=== PATIENT | female | born 2000 | race African-American/Black ===

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

== ENCOUNTER 2018-03-28 15:18 | Emergency (ER) | payer OTHER ==
[2018-03-28 15:29] VITALS: BP 106/66; PULSE 92; TEMP 97.9; BMI 24.2
--- NOTE | 2018-03-28 15:30 | PDOC ---
Rapid Medical Evaluation Chief Complaint: Sore Throat Time Seen by Provider: 03/28/18 15:24 Medical Evaluation: Allergies Allergy/AdvReac Type Severity Reaction Status Date / Time No Known Allergies Allergy Verified 03/28/18 15:24 12 15:25 I have performed a brief in-person evaluation of this patient. The patient presents with a chief complaint of:sorethroat, dry, headache no fever. Pertinent physical exam findings: temp 97.9 (ibuprofen at 12noon) I have ordered the following: rapid strep The patient will proceed to the ED for further evaluation. 03/28/18 15:25 03/28/18 15:28 Discharge Disposition - Diagnosis Pharyngitis Qualifiers: Pharyngitis/tonsillitis etiology: unspecified etiology Qualified Code(s): J02.9 - Acute pharyngitis, unspecified - Referrals Referrals: Tal King MD [Primary Care Provider] - - Patient Instructions - Post Discharge Activity
[2018-03-28] MEDS ORDERED: DEXAMETHASONE LIQUID 0.5 MG/5 ML 240 ML BULK BOTTLE PO ONE (16:14)
--- NOTE | 2018-03-28 16:14 | PDOC ---
History of Present Illness - General Chief Complaint: Sore Throat Stated Complaint: SORE THROAT Time Seen by Provider: 03/28/18 15:24 History Source: Patient Exam Limitations: No Limitations - History of Present Illness Initial Comments: 03/28/18 17:30 Patient is a 17-year-old who presents emergency department for 2 days of sore throat, headache and dry throat. She states she took Motrin at approximately 12 PM for her symptoms. Denies nausea, vomiting, cough, earache and rhinorrhea. Past History - Travel Traveled outside of the country in the last 30 days: No Close contact w/someone who was outside of country & ill: No - Past Medical History Allergies/Adverse Reactions: Allergies Allergy/AdvReac Type Severity Reaction Status Date / Time No Known Allergies Allergy Verified 03/28/18 15:24 Home Medications: Ambulatory Orders Amoxicillin - [Amoxicillin 500mg Capsule -] 500 mg PO BID #14 capsule 03/28/18 Ibuprofen 600 mg PO Q6H #30 tablet 03/28/18 Asthma: Yes Cancer: No Cardiac Disorders: No CVA: No COPD: No CHF: No DVT: No Dementia: No GI Disorders: No Disorders: No HTN: No Hypercholesterolemia: No Liver Disease: No Seizures: No Thyroid Disease: Yes (hyperactive) - Surgical History Abdominal Surgery: No Appendectomy: No Cardiac Surgery: No Cholecystectomy: No Lung Surgery: No Neurologic Surgery: No Orthopedic Surgery: No - Reproductive History (#): 2 Para: 0 - Immunization History Immunization Up to Date: Yes - Suicide/Smoking/Psychosocial Hx Smoking History: Never smoked Have you smoked in the past 12 months: No Hx Alcohol Use: No Drug/Substance Use Hx: No Substance Use Type: None Hx Substance Use Treatment: No Review of Systems - Review of Systems Able to Perform ROS?: Yes Comments:: 03/28/18 16:04 CONSTITUTIONAL: Absent: fever, chills, diaphoresis, generalized weakness, malaise, loss of appetite HEENT: Present: sore throat Absent: rhinorrhea, nasal congestion, throat swelling, difficulty swallowing, mouth swelling, ear pain, eye pain, visual Changes CARDIOVASCULAR: Absent: chest pain, loss of consciousness, palpitations, irregular heart rate, peripheral edema RESPIRATORY: Absent: cough, shortness of breath, dyspnea with exertion, orthopnea, wheezing, stridor, hemoptysis GASTROINTESTINAL: Absent: abdominal pain, abdominal distension, nausea, vomiting, diarrhea, constipation, melena, hematochezia GENITOURINARY: Absent: dysuria, frequency, urgency, hesitancy, hematuria, flank pain, genital pain MUSCULOSKELETAL: Absent: myalgia, arthralgia, joint swelling SKIN: Absent: rash, itching, pallor HEMATOLOGIC/IMMUNOLOGIC: Absent: easy bleeding, easy bruising, lymphadenopathy, frequent infections ENDOCRINE: Absent: unexplained weight gain, unexplained weight loss, heat intolerance, cold intolerance NEUROLOGIC: Present: headache Absent: focal weakness or paresthesias, dizziness, unsteady gait, seizure, mental status changes, bladder or bowel incontinence PSYCHIATRIC: Absent: anxiety, depression, suicidal or homicidal ideation, hallucinations. Is the patient limited Palestinian proficient: No *Physical Exam - Vital Signs Last Vital Signs Temp Pulse Resp BP Pulse Ox 97.9 F 92 H 18 106/66 100 03/28/18 15:25 03/28/18 15:25 03/28/18 15:25 03/28/18 15:25 03/28/18 15:25 - Physical Exam Comments: 03/28/18 16:06 GENERAL: Well developed, well nourished. Awake and alert. No acute distress. HEENT: Normocephalic, atraumatic. PERRLA, EOMI. No conjunctival pallor. Sclera are non- icteric. Moist mucous membranes. Oropharynx is erythematous with exudate on the tonsils b/l. No tonsilar edema. Uvula is midline NECK: Supple. Full ROM. No JVD. Carotid pulses 2+ and symmetric, without bruits. No thyromegaly. No lymphadenopathy. CARDIOVASCULAR: Regular rate and rhythm. No murmurs, rubs, or gallops. Distal pulses are 2+ and symmetric. PULMONARY: No evidence of respiratory distress. Lungs clear to auscultation bilaterally. No wheezing, rales or rhonchi. ABDOMINAL: Soft. Non-tender. Non-distended. No rebound or guarding. No organomegaly. Normoactive bowel sounds. MUSCULOSKELETAL Normal range of motion at all joints. No bony deformities or tenderness. No CVA tenderness. EXTREMITIES: No cyanosis. No clubbing. No edema. No calf tenderness. SKIN: Warm and dry. Normal capillary refill. No rashes. No jaundice. NEUROLOGICAL: Alert, awake, appropriate. Cranial nerves 2-12 intact. No deficits to light touch and temperature in face, upper extremities and lower extremities. No motor deficits in the in face, upper extremities and lower extremities. Normoreflexic in the upper and lower extremities. Normal speech. Toes are down- going bilaterally. Gait is normal without ataxia. PSYCHIATRIC: Cooperative. Good eye contact. Appropriate mood and affect. Moderate Sedation - Procedure Monitoring Vital Signs: Procedure Monitoring Vital Signs Temperature 97.9 F 03/28/18 15:25 Pulse Rate 92 H 03/28/18 15:25 Respiratory Rate 18 03/28/18 15:25 Blood Pressure 106/66 03/28/18 15:25 O2 Sat by Pulse Oximetry (%) 100 03/28/18 15:25 Medical Decision Making - Medical Decision Making 03/28/18 17:31 Patient is a 17-year-old female who presents to emergency department today's of sore throat. Rapid strep came from E is positive at this time. 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 Prednisone given for pain. Amoxicillin sent to the pharmacy with ibuprofen. Vital signs stable, patient is afebrile. Discharge home I discussed the physical exam findings, ancillary test results and final diagnoses with the patient. I answered all of the patient's questions. The patient was satisfied with the care received and felt comfortable with the discharge plan and treatment plan. The Patient agrees to follow up with the primary care physician/specialist within 24-72 hours. Return precautions were given. *DC/Admit/Observation/Transfer Diagnosis at time of Disposition: Strep pharyngitis - Discharge Dispostion Disposition: HOME Condition at time of disposition: Stable Decision to Admit order: No - Prescriptions Prescriptions: Amoxicillin - [Amoxicillin 500mg Capsule -] 500 mg PO BID #14 capsule Ibuprofen 600 mg PO Q6H #30 tablet - Referrals Referrals: Tal King MD [Primary Care Provider] - - Patient Instructions Printed Discharge Instructions: DI for Strep Throat Additional Instructions: You have strep throat. This is a bacterial infection. Please take the amoxicillin 500 mg twice a day for one week. Please finish the prescription even if you feel better. You may take Motrin 600 mg every 6 hours as needed for pain or fever. Warm water gargles and cough drops and just may also help her symptoms. Please throw way your toothbrush 3 days into treatment to prevent reinfection. Please follow up with your primary care doctor next week. Return to emergency department if you have worsening pain, difficulty swallowing , changes in your voice, lightheadedness, dizziness, or any changes in your symptoms. - Post Discharge Activity Forms/Work/School Notes: Back to Work
[2018-03-28] MEDS ORDERED: DEXAMETHASONE SOD PHOSPHATE 10 MG/1 ML VIAL ONE (16:17)
== END 2018-03-28 16:20 | disposition home or self-care (01) ==
LOC: JER 15:18
DX: J02.0 Streptococcal pharyngitis (principal); B95.0 Streptococcus, group A, as the cause of diseases classified elsewhere; E05.90 Thyrotoxicosis, unspecified without thyrotoxic crisis or storm; J45.909 Unspecified asthma, uncomplicated
CPT/HCPCS: 87880; 99281-25

== ENCOUNTER 2018-10-03 17:18 | Emergency (ER) | payer OTHER | END 2018-10-03 19:47 | disposition home or self-care (01) | LOC: JERFT 17:18 ==

== ENCOUNTER 2018-11-28 09:01 | Emergency (ER) | payer OTHER ==
[2018-11-28 09:17] VITALS: BP 106/71; PULSE 107; TEMP 98.1; BMI 21.9
--- NOTE | 2018-11-28 10:13 | PDOC ---
History of Present Illness - General Chief Complaint: Vaginal Bleeding Stated Complaint: VAGINAL BLEEDING Time Seen by Provider: 11/28/18 09:29 History Source: Patient Exam Limitations: No Limitations - History of Present Illness Travel History: No Initial Comments: 11/28/18 09:58 18-year-old 11 weeks female presents to ED with complaints of vaginal bleeding upon awakening this morning along with lower abdominal cramping since last night. LMP 09/08/18. Patient states bleeding has subsided only noted with wiping which she describes as bright red without clots. Patient states has not had an ultrasound for this Timing/Duration: reports: changing over time Quality: reports: mild, cramping Abdominal Pain Onset Location: reports: suprapubic Activities at Onset: reports: none Aggravating Factors: improves with: None Alleviating Factors: improves with: None Past History - Travel Traveled outside of the country in the last 30 days: No Close contact w/someone who was outside of country & ill: No - Past Medical History Allergies/Adverse Reactions: Allergies Allergy/AdvReac Type Severity Reaction Status Date / Time No Known Allergies Allergy Verified 10/03/18 17:39 Home Medications: Ambulatory Orders NK [No Known Home Medication] 11/28/18 Asthma: Yes Cancer: No Cardiac Disorders: No CVA: No COPD: No CHF: No DVT: No Dementia: No GI Disorders: No Disorders: No HTN: No Hypercholesterolemia: No Liver Disease: No Seizures: No Thyroid Disease: Yes (hyperactive) - Surgical History Abdominal Surgery: No Appendectomy: No Cardiac Surgery: No Cholecystectomy: No Lung Surgery: No Neurologic Surgery: No Orthopedic Surgery: No - Reproductive History (#): 2 Para: 0 - Immunization History Immunization Up to Date: Yes - Suicide/Smoking/Psychosocial Hx Smoking History: Never smoked Have you smoked in the past 12 months: No Hx Alcohol Use: No Drug/Substance Use Hx: No Substance Use Type: None Hx Substance Use Treatment: No Patient Lives Alone: No Lives with/in: parents Review of Systems - Review of Systems Able to Perform ROS?: Yes Constitutional: No: Symptoms Reported HEENTM: No: Symptoms Reported Respiratory: No: Symptoms reported Cardiac (ROS): No: Symptoms Reported ABD/GI: Yes: Abdominal cramping : No: Symptoms Reported Musculoskeletal: No: Symptoms Reported Integumentary: No: Symptoms Reported Neurological: No: Symptoms reported Endocrine: No: Symptoms Reported Hematologic/Lymphatic: No: Symptoms Reported *Physical Exam - Vital Signs Last Vital Signs Temp Pulse Resp BP Pulse Ox 98.1 F 107 H 18 106/71 100 11/28/18 09:14 11/28/18 09:14 11/28/18 09:14 11/28/18 09:14 11/28/18 09:14 - Physical Exam General Appearance: Yes: Nourished, Appropriately Dressed. No: Apparent Distress HEENT: negative: Pale Conjunctivae Neck: positive: Normal Thyroid, Supple Respiratory/Chest: positive: Lungs Clear, Normal Breath Sounds. negative: Respiratory Distress, Accessory Muscle Use Cardiovascular: positive: Regular Rhythm, Tachycardia. negative: Murmur Female Pelvic Exam: positive: normal external exam, cervical os closed, vaginal bleeding (scant light red). negative: adnexal tenderness Gastrointestinal/Abdominal: positive: Normal Bowel Sounds, Soft, Tenderness ( midsuprapubic). negative: Distended Musculoskeletal: negative: CVA Tenderness Integumentary: positive: Normal Color, Warm, Moist Neurologic: positive: Motor Strength 5/5 (ambulatory) ED Treatment Course - LABORATORY CBC & Chemistry Diagram: 11/28/18 10:00 11/28/18 10:00 - RADIOLOGY Radiology Studies Ordered: Category Date Time Status <14WKS US [US] Stat Ultrasound 11/28/18 09:31 Ordered Medical Decision Making - Medical Decision Making 11/28/18 10:06 CC: abd pain, vag bleeding since this am, 11 weeks Exam: mid suprapubic tenderness with scant light red blleding noted in vault Plan: labs, urine and ultrasound 11/28/18 13:01 Laboratory Tests 11/28/18 11/28/18 11/28/18 10:00 10:00 10:00 WBC 7.5 Hgb 13.3 Hct 38.9 D Absolute Neuts (auto) 3.8 Monocytes % 9.0 D Eosinophils % 15.9 H D Sodium 138 Potassium 4.2 Chloride 104 Carbon Dioxide 28 Anion Gap 6 L BUN 9.7 Creatinine 0.8 Random Glucose 89 Calcium 10.2 H Total Bilirubin 0.6 AST 8 L ALT 17 Total Protein 8.0 Albumin 4.3 Beta HCG, Quant > 1000.0 Urine Ketones 1+ H Urine Blood 3+ H Urine Nitrite Negative Urine Bilirubin 1+ H Ur Leukocyte Esterase 1+ H Urine WBC (Auto) 16 Urine RBC (Auto) 16 Urine Casts (Auto) 37 11/28/18 13:03 Irregular intrauterine fluid collection consistent with a nonviable gestational sac. Clinical and laboratory correlation and follow-up sonogram is recommended. Patient has an appointment with Kaila Beth on or around 12/0511/28/18 13:04 U Culture and follow shows staph epidermidis sensitive to Macrobid. Patient will be prescribed the same *DC/Admit/Observation/Transfer Diagnosis at time of Disposition: Threatened , UTI (urinary tract infection) - Discharge Dispostion Disposition: HOME Condition at time of disposition: Good - Referrals Referrals: Tal King MD [Primary Care Provider] - Mag Beth CNM [Certified Nurse Senior Controller] - - Patient Instructions Printed Discharge Instructions: DI for Urinary Tract Infection (UTI), DI for Threatened Additional Instructions: I Recommend to follow-up with NIGHT CLERK AUDITOR as scheduled next week. Please take antibiotics as prescribed for urinary tract infection. If you develop any bleeding or mild abdominal cramping you may take Tylenol but if you develop severe abdominal cramping or heavy vaginal bleeding please return to the ED - Post Discharge Activity Forms/Work/School Notes: Back to Work
[2018-11-28 10:15] LABS: BASO % 1.4 % (0-2.0); EOS % 15.9 % (0-4.5); HEMATOCRIT 38.9 % (32.4-45.2); HEMOGLOBIN 13.3 GM/dL (10.7-15.3); LYMPH % 22.9 % (8-40); MCHC 34.2 g/dl (32.0-36.0); MEAN CELL VOLUME 99.5 fl (80-96); MEAN PLT VOLUME 7.9 fl (7.5-11.1); NEUT % 50.8 % (42.8-82.8); PLATELET COUNT 352 K/MM3 (134-434); RBC 3.91 M/mm3 (3.60-5.2); RDW 12.8 % (11.6-15.6); WHITE BLOOD COUNT 7.5 K/mm3 (4.0-10.0)
[2018-11-28 10:26] LABS: EPI CELLS 25.5 /HPF (0-5/HPF); HYALINE CASTS 37 /lpf (0-8); PH,URINE 6.5 (5.0-8.0); URINE APPEARANCE CLOUDY; URINE BACTERIA 203.6 /hpf (NEGATIVE); URINE BILIRUBIN 1+ (NEGATIVE); URINE COLOR DK YELLOW; URINE GLUCOSE (UA) NEGATIVE (NEGATIVE); URINE KETONE 1+ (NEGATIVE); URINE LEUK ESTERASE 1+ (NEGATIVE); URINE NITRITE NEGATIVE (NEGATIVE); URINE PROTEIN 1+ (NEGATIVE); URINE RBC 16 /hpf (0-4); URINE WBC 16 /hpf (0-5)
[2018-11-28 11:05] LABS: ALBUMIN 4.3 g/dl (3.4-5.0); ALK PHOS 70 U/L (45-117); ANION GAP 6 MMOL/L (8-16); BILIRUBIN,TOTAL 0.6 mg/dL (0.2-1); BLOOD UREA NITROGEN 9.7 mg/dL (7-18); CALCIUM 10.2 mg/dL (8.5-10.1); CHLORIDE 104 mmol/L (98-107); CO2 28 mmol/L (21-32); CREATININE 0.8 mg/dL (0.55-1.3); GLUCOSE,RANDOM 89 mg/dL (74-106); POTASSIUM 4.2 mmol/L (3.5-5.1); SGOT/AST 8 U/L (15-37); SGPT/ALT 17 U/L (13-61); SODIUM 138 mmol/L (136-145)
== END 2018-11-28 14:19 | disposition home or self-care (01) ==
LOC: JER 09:01
DX: O26.891 Other specified pregnancy related conditions, first trimester (principal); O20.0 Threatened abortion; O23.41 Unspecified infection of urinary tract in pregnancy, first trimester; Z3A.11 11 weeks gestation of pregnancy
CPT/HCPCS: 36415; 76801-TC; 80053; 81003; 84702; 85025; 86850; 86900; 86901; 87077; 87086; 99281-25

== ENCOUNTER 2019-01-11 15:54 | Emergency (ER) | payer OTHER ==
[2019-01-11 16:36] VITALS: BP 119/63; PULSE 91; TEMP 98.5; BMI 20.9
--- NOTE | 2019-01-11 16:39 | PDOC ---
Rapid Medical Evaluation Chief Complaint: Asthma Time Seen by Provider: 01/11/19 16:32 Medical Evaluation: Allergies Allergy/AdvReac Type Severity Reaction Status Date / Time No Known Allergies Allergy Verified 10/03/18 17:39 01/11/19 16:34 Pt presents with chest tightness and wheezing for two days. She is currently taking prednisone and breathing treatments at home. She states that despite the medication she is still having shortness of breath. She has been hospitalized and intubated for her asthma in the past Exam: lungs sound tight without obvious wheezing. Orders: bar Pt to proceed to the ER for further evaluation Discharge Disposition - Diagnosis Asthma Qualifiers: Asthma severity: mild Asthma persistence: intermittent Asthma complication type : with acute exacerbation Qualified Code(s): J45.21 - Mild intermittent asthma with (acute) exacerbation - Referrals Referrals: Tal King MD [Primary Care Provider] - - Patient Instructions - Post Discharge Activity
[2019-01-11] MEDS ORDERED: ALBUTEROL SO4 2.5/IPRATROPIUM 0.5 INH SOL 3 ML VIAL.NEB. NEB SCH (16:45)
--- NOTE | 2019-01-11 16:59 | PDOC ---
History of Present Illness - General Chief Complaint: Asthma Stated Complaint: ASTHMA Time Seen by Provider: 01/11/19 16:32 History Source: Patient Exam Limitations: No Limitations - History of Present Illness Initial Comments: 01/11/19 17:58 Chief complaint: Asthma Patient 18-year-old female, with multiple episodes of asthma, all her life, previously intubated, last time last year and that was her last attack. Patient states she's been getting shortness of breath since yesterday. She is on symbacort and singulair. no fever and otherwise feels well GENERAL/CONSTITUTIONAL: No fever, weakness. dizziness HEAD, EYES, EARS, NOSE AND THROAT: No change in vision. No ear pain or discharge. No sore throat. CARDIOVASCULAR: No chest pain RESPIRATORY: +shortness of breath or cough GASTROINTESTINAL: No pain, nausea, vomiting, diarrhea or constipation GENITOURINARY: No dysuria MUSCULOSKELETAL: No neck or back pain SKIN: No rash NEUROLOGIC: No headache, vertigo, loss of consciousness, or loss of sensation. GENERAL: The patient is awake, alert, and fully oriented, in no acute distress. HEAD: Normal with no signs of trauma. EYES: Pupils equal, round and reactive to light, sclera anicteric, conjunctiva clear. ENT: pharynx: no erythema, no exudate, uvula midline NECK: supple CHEST: minimal wheezing, no signs of distress, nontender, rr ABD: soft, nontender BACK: no tenderness or signs of injury EXTREMITIES: Normal range of motion, no edema. NEUROLOGICAL: Normal speech, normal gait. SKIN: Warm, Dry Past History - Past Medical History Allergies/Adverse Reactions: Allergies Allergy/AdvReac Type Severity Reaction Status Date / Time No Known Allergies Allergy Verified 10/03/18 17:39 Home Medications: Ambulatory Orders Nitrofurantoin Monohyd/M-Cryst [Macrobid -] 100 mg PO BID #14 capsule 11/28/18 Albuterol Sulfate Inhaler - [Ventolin Hfa Inhaler -] 2 inh PO Q4H #1 inh Prednisone [Deltasone] 40 mg PO DAILY #8 tablet 01/11/19 Asthma: Yes Cancer: No Cardiac Disorders: No CVA: No COPD: No CHF: No DVT: No Dementia: No GI Disorders: No Disorders: No HTN: No Hypercholesterolemia: No Liver Disease: No Seizures: No Thyroid Disease: Yes (hyperactive) - Surgical History Abdominal Surgery: No Appendectomy: No Cardiac Surgery: No Cholecystectomy: No Lung Surgery: No Neurologic Surgery: No Orthopedic Surgery: No - Reproductive History (#): 2 Para: 0 - Immunization History Immunization Up to Date: Yes - Suicide/Smoking/Psychosocial Hx Smoking History: Never smoked Have you smoked in the past 12 months: No Information on smoking cessation initiated: No Hx Alcohol Use: No Drug/Substance Use Hx: No Substance Use Type: None Hx Substance Use Treatment: No *Physical Exam - Vital Signs Last Vital Signs Temp Pulse Resp BP Pulse Ox 98.5 F 91 H 17 119/63 97 01/11/19 16:33 01/11/19 16:33 01/11/19 16:33 01/11/19 16:33 01/11/19 16:33 Medical Decision Making - Medical Decision Making 01/11/19 18:03 18 yo with long hx of asthma, previous intubation with tightness for one day. no signs of distress, full sentences with scant wheezing. last episode 2017 asthma action plan initiated. pt given duoneb and prednisone respiratory therapist completed asthma action plan. pt feels better, does not want additional nebulizer treatments 01/11/19 18:12 Discussed issues, findings, results, applicable medications and treatments and follow-up. All these were understood and all questions were answered *DC/Admit/Observation/Transfer Diagnosis at time of Disposition: Asthma Qualifiers: Asthma severity: mild Asthma persistence: intermittent Asthma complication type : with acute exacerbation Qualified Code(s): J45.21 - Mild intermittent asthma with (acute) exacerbation - Discharge Dispostion Disposition: HOME Condition at time of disposition: Stable - Prescriptions Prescriptions: Albuterol Sulfate Inhaler - [Ventolin Hfa Inhaler -] 2 inh PO Q4H #1 inh Prednisone [Deltasone] 40 mg PO DAILY #8 tablet - Referrals Referrals: Tal King MD [Primary Care Provider] - - Patient Instructions Printed Discharge Instructions: Asthma -- Adult Additional Instructions: use ventolin inhaler as instructed as needed starting tomorrow, take prednisone 40 mg once daily for 4 days return if worse follow up with your doctor by tuesday follow instructions given to you by respiratory therapist. - Post Discharge Activity Forms/Work/School Notes: Back to Work
[2019-01-11] MEDS ORDERED: ALBUTEROL SO4 2.5/IPRATROPIUM 0.5 INH SOL 3 ML VIAL.NEB. NEB ONE (17:43)
[2019-01-11] MEDS ORDERED: predniSONE 20 MG TABLET (UD) PO ONE (17:44)
== END 2019-01-11 18:48 | disposition home or self-care (01) ==
LOC: JERFT 15:54 → SUPCPDRO 15:54 → JERFT 18:48
PROC: 3E0F7GC Introduction of Other Therapeutic Substance into Respiratory Tract, Via Natural or Artificial Opening (ICD-10-PCS; principal; 2019-01-11)
DX: J45.21 Mild intermittent asthma with (acute) exacerbation (principal)
CPT/HCPCS: 94664; 99281-25

== ENCOUNTER 2019-05-11 19:31 | Emergency (ER) | payer OTHER ==
[2019-05-11] MEDS ORDERED: predniSONE 20 MG TABLET (UD) PO ONE ×2 (19:35→20:06)
[2019-05-11 19:37] VITALS: TEMP 98.8; BMI 21.3
--- NOTE | 2019-05-11 19:38 | PDOC ---
Rapid Medical Evaluation Time Seen by Provider: 05/11/19 19:34 Medical Evaluation: Allergies Allergy/AdvReac Type Severity Reaction Status Date / Time No Known Allergies Allergy Verified 10/03/18 17:39 05/11/19 19:34 I have performed a brief in-person evaluation of this patient. The patient presents with a chief complaint of: asthma flare in setting of URI, using pump w/ no relief. No recent admission and no intubations. Uses pump and machine at home Pertinent physical exam findings:Tachy to 142 (took nebs at home prior to arrival), 93% on RA w/ wheezing on exam I have ordered the following:nebs/predisone The patient will proceed to the ED for further evaluation Discharge Disposition - Diagnosis Asthma Qualifiers: Asthma severity: mild Asthma persistence: unspecified Asthma complication type : unspecified Qualified Code(s): J45.909 - Unspecified asthma, uncomplicated - Referrals - Patient Instructions - Post Discharge Activity
[2019-05-11] MEDS ORDERED: ALBUTEROL SO4 2.5/IPRATROPIUM 0.5 INH SOL 3 ML VIAL.NEB. NEB ONE (19:46)
[2019-05-11] MEDS: ALBUTEROL SO4 2.5/IPRATROPIUM 0.5 INH SOL 3 ML VIAL.NEB. NEB SCH ×4 (19:50→20:32)
[2019-05-11] MEDS ORDERED: predniSONE 20 MG TABLET (UD) ONE (19:58)
--- NOTE | 2019-05-11 20:04 | PDOC ---
History of Present Illness - General Chief Complaint: Respiratory Stated Complaint: ASTHMA Time Seen by Provider: 05/11/19 19:34 History Source: Patient Exam Limitations: No Limitations - History of Present Illness Initial Comments: 05/11/19 20:00 HISTORY OF PRESENT ILLNESS: 18-year-old woman past medical history of asthma (1 intubation last year) who presents to the emergency department for evaluation of shortness of breath x1 day. Patient reports having sore throat, nasal congestion postnasal drip over the past 3 to 4 days. She denies any fevers or cough. Patient states she began to feel short of breath earlier today and gave herself previously prescribed prednisone (does not remember dosage) as well as nebulizer treatments. Upon arrival in the emergency department tachycardic to 138 bpm with SPO2 93% on room air. No recent travel or sick contacts. PAST MEDICAL HISTORY: See HPI SURGICAL HISTORY: Denies ALLERGIES: No known drug allergies REVIEW OF SYSTEMS General/Constitutional: Denies fever or chills. Denies weakness, weight change. HEENT: Denies change in vision. Denies ear pain or discharge. Denies sore throat. Cardiovascular: Denies chest pain or shortness of breath. Respiratory: See HPI Gastrointestinal: Denies nausea, vomiting, diarrhea or constipation. Denies rectal bleeding. Genitourinary: Denies dysuria, frequency, or change in urination. Musculoskeletal: Denies joint or muscle swelling or pain. Denies neck or back pain. Skin and breasts: Denies rash or easy bruising. Neurologic: Denies headache, vertigo, loss of consciousness, or loss of sensation. Psychiatric: Denies depression or anxiety. Endocrine: Denies increased thirst. Denies abnormal weight change. Hematologic/Lymphatic: Denies anemia, easy bleeding, or history of blood clots. Allergic/Immunologic: Denies hives or skin allergy. Denies latex allergy. PHYSICAL EXAM General Appearance: Well-appearing, appropriately dressed. No apparent distress , no intoxication. HEENT: EOMI, PERRLA, normal ENT inspection, normal voice, TMs normal, pharynx normal. No conjunctival pallor. No photophobia, scleral icterus. Neck: Supple. Trachea midline. No tenderness, rigidity, carotid bruit, stridor , lymphadenopathy, or thyromegaly. Respiratory/Chest: Speaking full sentences. No shortness of breath, chest tenderness, respiratory distress, accessory muscle use. No crackles, rales, rhonchi, stridor, dullness. Scattered inspiratory and expiratory wheezes present. Oxygen saturation 93% on room air. Cardiovascular: RRR. S1, S2. No JVD, murmur, bradycardia, tachycardia. Vascular Pulses: Dorsalis-Pedis (R): 2+, Dorsalis-Pedis (L): 2+ Musculoskeletal/Extremities: Normal inspection. FROM of all extremities, normal capillary refill. Pelvis Stable. No CVA tenderness. No tenderness to extremities, pedal edema, swelling, erythema or deformity. Integumentary: Appropriate color, dry, warm. No cyanosis, erythema, jaundice or rash Neurologic: visual artist II-XII intact. Fully oriented, alert. Appropriate mood/affect. Motor strength 5/5. No appreciable EOM palsy, facial droop or sensory deficit. Past History - Past Medical History Allergies/Adverse Reactions: Allergies Allergy/AdvReac Type Severity Reaction Status Date / Time No Known Allergies Allergy Verified 05/11/19 19:37 Home Medications: Ambulatory Orders Albuterol Sulfate Inhaler - [Ventolin Hfa Inhaler -] 2 inh PO Q4H 05/11/19 predniSONE [Deltasone -] 40 mg PO DAILY #8 tablet 05/11/19 Asthma: Yes Cancer: No Cardiac Disorders: No CVA: No COPD: No CHF: No DVT: No Dementia: No GI Disorders: No Disorders: No HTN: No Hypercholesterolemia: No Liver Disease: No Seizures: No Thyroid Disease: Yes (hyperactive) - Surgical History Abdominal Surgery: No Appendectomy: No Cardiac Surgery: No Cholecystectomy: No Lung Surgery: No Neurologic Surgery: No Orthopedic Surgery: No - Reproductive History (#): 2 Para: 0 - Immunization History Immunization Up to Date: Yes - Psycho Social/Smoking Cessation Hx Smoking History: Never smoked Have you smoked in the past 12 months: No Hx Alcohol Use: No Drug/Substance Use Hx: No Substance Use Type: None Hx Substance Use Treatment: No *Physical Exam - Vital Signs Last Vital Signs Temp Pulse Resp BP Pulse Ox 98.8 F 138 H 18 104/63 93 L 05/11/19 19:34 05/11/19 19:34 05/11/19 19:34 05/11/19 19:34 05/11/19 19:34 ED Treatment Course - LABORATORY CBC & Chemistry Diagram: 05/11/19 21:40 05/11/19 21:40 Medical Decision Making - Medical Decision Making 05/11/19 20:02 A/P: 18-year-old female with shortness of breath for 1 day Most likely acute exacerbation of asthma in setting of upper respiratory infection. DuoNeb's Reassess Low threshold for imaging, lab work and magnesium 05/11/19 20:06 Patient questioned again about prednisone unsure of dosage or how much she took. I will add prednisone 60 mg orally now. 05/11/19 21:44 Repeat lung exam reveals clear lungs. Patient noted to have SPO2 of 93% on room air and remains persistently tachycardic at 137 bpm. His lung exam has improved but vital signs are unchanged I will get a chest x-ray, CBC, BMP, d- dimer, EKG, normal saline 1 L IV bolus and magnesium 2 g IV. Patient to be transferred to the main emergency department for continued evaluation. Charge nurse Faustino and MOISES Morris made aware. 05/11/19 21:51 Discharge - Discharge Information Problems reviewed: Yes Clinical Impression/Diagnosis: Asthma Qualifiers: Asthma severity: mild Asthma persistence: unspecified Asthma complication type : unspecified Qualified Code(s): J45.909 - Unspecified asthma, uncomplicated Condition: Stable Disposition: HOME - Additional Discharge Information Prescriptions: predniSONE [Deltasone -] 40 mg PO DAILY #8 tablet - Follow up/Referral Referrals: Tal King MD [Primary Care Provider] - 2 Days - Patient Discharge Instructions Patient Printed Discharge Instructions: DI for Asthma -- Adult Additional Instructions: Thank you for choosing [facility]. It was a pleasure taking care of you. Continue use of Albuterol as needed for shortness of breath/wheezing Use prednisone as prescribed Follow-up with your doctor for further control of asthma Return to the Emergency Department if your symptoms worsen or persist or have other concerning symptoms. - Post Discharge Activity Work/Back to School Note: Back to Work
[2019-05-11] MEDS ORDERED: SODIUM CHLORIDE 1,000 ML IV STA (21:19)
[2019-05-11] MEDS ORDERED: MAGNESIUM SULF 50% (8.12 MEQ/2 ML-1 GM VIAL) ONE (21:51)
[2019-05-11 21:58] LABS: BASO % 0.3 % (0-2.0); EOS % 4.8 % (0-4.5); HEMATOCRIT 42.5 % (32.4-45.2); HEMOGLOBIN 14.2 GM/dL (10.7-15.3); MCH 33.1 pg (25.7-33.7); MCHC 33.5 g/dl (32.0-36.0); MEAN CELL VOLUME 98.9 fl (80-96); MEAN PLT VOLUME 8.3 fl (7.5-11.1); MONO % 7.3 % (3.8-10.2); NEUT % 81.6 % (42.8-82.8); PLATELET COUNT 334 K/MM3 (134-434); RBC 4.29 M/mm3 (3.60-5.2); RDW 12.8 % (11.6-15.6); WHITE BLOOD COUNT 15.1 K/mm3 (4.0-10.0)
[2019-05-11 22:32] LABS: BLOOD UREA NITROGEN 11.1 mg/dL (7-18); CALCIUM 9.5 mg/dL (8.5-10.1); CREATININE 0.9 mg/dL (0.55-1.3); POTASSIUM 4.2 mmol/L (3.5-5.1)
[2019-05-11 22:57] VITALS: BP 125/70; PULSE 103
--- NOTE | 2019-05-11 23:34 | PDOC ---
*Physical Exam - Vital Signs Last Vital Signs Temp Pulse Resp BP Pulse Ox 98.8 F 103 H 14 125/70 98 05/11/19 19:34 05/11/19 22:56 05/11/19 22:56 05/11/19 22:56 05/11/19 22:56 ED Treatment Course - LABORATORY CBC & Chemistry Diagram: 05/11/19 21:40 05/11/19 21:40 - ADDITIONAL ORDERS Additional order review: Laboratory Results 05/11/19 05/11/19 21:40 21:40 D-Dimer < 215 Sodium 142 Potassium 4.2 Chloride 107 Carbon Dioxide 24 Anion Gap 11 BUN 11.1 Creatinine 0.9 Est GFR (CKD-EPI)AfAm 106.68 Est GFR (CKD-EPI)NonAf 92.04 Random Glucose 87 Calcium 9.5 05/11/19 21:40 RBC 4.29 MCV 98.9 H MCHC 33.5 RDW 12.8 MPV 8.3 Neutrophils % 81.6 D Lymphocytes % 6.0 L D Monocytes % 7.3 Eosinophils % 4.8 H Basophils % 0.3 - Medications Given in the ED: ED Medications Discontinued Medications Generic Name Dose Route Start Last Admin Trade Name Freq PRN Reason Stop Dose Admin Albuterol/Ipratropium 1 amp 05/11/19 19:45 05/11/19 20:32 Duoneb - NEB 05/11/19 20:31 1 amp Q15M MESSI Administration Magnesium Sulfate/Dextrose 2 200 mls @ 100 mls/hr 05/11/19 21:19 05/11/19 21: 56 gm/ Miscellaneous IVPB 05/11/19 23:18 100 mls/hr ONCE ONE Administration Sodium Chloride 1,000 mls @ 1,000 mls/hr 05/11/19 21:19 05/11/19 21:56 Normal Saline - IV 05/11/19 22:18 1,000 mls/hr ASDIR STA Administration Prednisone 60 mg 05/11/19 19:35 05/11/19 20:40 Deltasone - PO 05/11/19 19:36 Not Given ONCE ONE Prednisone 60 mg 05/11/19 20:06 05/11/19 20:06 Deltasone - PO 05/11/19 20:07 60 mg ONCE ONE Administration Medical Decision Making - Medical Decision Making Patient signed out to me by NAIF Villalpando EKG: Sinus tachycardia at 108 bpm, no ST-T changes Labs reviewed Leukocytosis noted Ddimer negative CXR negative Patient overall feeling better than before Slight expiratory wheeze noted on exam Pulse ox 97-98% after having patient ambulate Repeat HR 103 Patient is already on Albuterol, Montelukast and Symbicort for asthma Feeling better, wants to go home stable for dc 05/11/19 23:31 Discharge - Discharge Information Problems reviewed: Yes Clinical Impression/Diagnosis: Asthma Qualifiers: Asthma severity: mild Asthma persistence: unspecified Asthma complication type : unspecified Qualified Code(s): J45.909 - Unspecified asthma, uncomplicated Condition: Stable Disposition: HOME - Admission No - Additional Discharge Information Prescriptions: predniSONE [Deltasone -] 40 mg PO DAILY #8 tablet Prescription Drug Monitoring Program (I-STOP) results: I-STOP not reviewed - Follow up/Referral Referrals: Tal King MD [Primary Care Provider] - 2 Days - Patient Discharge Instructions Patient Printed Discharge Instructions: DI for Asthma -- Adult Additional Instructions: Thank you for choosing [facility]. It was a pleasure taking care of you. Continue use of Albuterol as needed for shortness of breath/wheezing Use prednisone as prescribed Follow-up with your doctor for further control of asthma Return to the Emergency Department if your symptoms worsen or persist or have other concerning symptoms. - Post Discharge Activity
--- NOTE | 2019-05-12 13:16 | EKG ---
Test Reason : Blood Pressure : / mmHG Vent. Rate : 108 BPM Atrial Rate : 108 BPM P-R Int : 174 ms QRS Dur : 086 ms QT Int : 358 ms P-R-T Axes : 079 063 075 degrees QTc Int : 479 ms SINUS TACHYCARDIA RIGHT ATRIAL ENLARGEMENT MINIMAL VOLTAGE CRITERIA FOR LVH, MAY BE NORMAL VARIANT BORDERLINE ECG WHEN COMPARED WITH ECG OF 08-SEP-2017 21:06, NONSPECIFIC T WAVE ABNORMALITY, WORSE IN LATERAL LEADS Confirmed by HORTENSIA FIELDS, HERMAN ([id number]) on 05/12/2019 1:16:18 PM Referred By: Confirmed By:HERMAN BAZAN MD
== END 2019-05-11 23:44 | disposition home or self-care (01) ==
LOC: JERFT 19:31 → JER 19:31
PROC: 3E0F7GC Introduction of Other Therapeutic Substance into Respiratory Tract, Via Natural or Artificial Opening (ICD-10-PCS; principal; 2019-05-11)
PROC: 3E033GC Introduction of Other Therapeutic Substance into Peripheral Vein, Percutaneous Approach (ICD-10-PCS; 2019-05-11)
PROC: 3E033GC Introduction of Other Therapeutic Substance into Peripheral Vein, Percutaneous Approach (ICD-10-PCS; 2019-05-11)
DX: J45.901 Unspecified asthma with (acute) exacerbation (principal); J06.9 Acute upper respiratory infection, unspecified
CPT/HCPCS: 36415; 71046-TC-FY; 80048; 85025; 85379; 93005; 93010; 94640; 96365; 96366; 99283-25; J7030

== ENCOUNTER 2019-05-28 01:13 | Emergency (ER) | payer OTHER ==
[2019-05-28 01:56] VITALS: BMI 21.7
[2019-05-28] MEDS ORDERED: ALBUTEROL SO4 0.083% IH SOL 2.5 MG/3 ML VIAL.NEB. NEB ONE (02:21)
[2019-05-28] MEDS ORDERED: ACETAMINOPHEN 500 MG TABLET (FP) PO ONE (02:21)
[2019-05-28] MEDS ORDERED: IBUPROFEN 600 MG TABLET (FP) PO ONE ×2 (02:21→03:41)
--- NOTE | 2019-05-28 02:59 | PDOC ---
History of Present Illness - General Chief Complaint: Cold Symptoms Stated Complaint: SOB x 2 days Time Seen by Provider: 05/28/19 02:20 History Source: Patient, Parent(s) - History of Present Illness Initial Comments: 05/28/19 02:55 18yoF Hx of asthma presnets c/o 2d of viral symptoms -- body aches, subj fevers/ chills, cough nonproductive, congestion. Using her albuterol at home w/ good improvement in symptoms. Past History - Travel Traveled outside of the country in the last 30 days: No Close contact w/someone who was outside of country & ill: No - Past Medical History Allergies/Adverse Reactions: Allergies Allergy/AdvReac Type Severity Reaction Status Date / Time No Known Allergies Allergy Verified 05/28/19 01:54 Home Medications: Ambulatory Orders Albuterol Sulfate Inhaler - [Ventolin Hfa Inhaler -] 2 inh PO Q4H 05/11/19 predniSONE [Deltasone -] 40 mg PO DAILY #8 tablet 05/11/19 Asthma: Yes Cancer: No Cardiac Disorders: No CVA: No COPD: No CHF: No DVT: No Dementia: No GI Disorders: No Disorders: No HTN: No Hypercholesterolemia: No Liver Disease: No Seizures: No Thyroid Disease: Yes (hyperactive) - Surgical History Abdominal Surgery: No Appendectomy: No Cardiac Surgery: No Cholecystectomy: No Lung Surgery: No Neurologic Surgery: No Orthopedic Surgery: No - Reproductive History (#): 2 Para: 0 - Immunization History Immunization Up to Date: Yes - Psycho Social/Smoking Cessation Hx Smoking History: Never smoked Have you smoked in the past 12 months: No Information on smoking cessation initiated: No Hx Alcohol Use: No Drug/Substance Use Hx: No Substance Use Type: None Hx Substance Use Treatment: No Review of Systems - Review of Systems All Other Systems: Reviewed and Negative *Physical Exam - Vital Signs Last Vital Signs Temp Pulse Resp BP Pulse Ox 98.7 F 105 H 17 100/69 97 05/28/19 01:15 05/28/19 01:15 05/28/19 01:15 05/28/19 01:15 05/28/19 01:15 - Physical Exam 05/28/19 02:56 NAD, well appearing good air movement, normal I:E, scattered occasional faint wheeze. RRR A&O x 3 Medical Decision Making - Medical Decision Making 05/28/19 02:57 18yoF w/ asthma and viral syndrome. Symptoms seem well controlled w/ home albuterol. - sxs control - DC w/ home care advice. Discharge - Discharge Information Problems reviewed: Yes Clinical Impression/Diagnosis: Viral syndrome Condition: Good Disposition: HOME - Admission No - Additional Discharge Information Prescription Drug Monitoring Program (I-STOP) results: I-STOP not reviewed - Follow up/Referral Referrals: Tal King MD [Primary Care Provider] - - Patient Discharge Instructions Additional Instructions: Continue to use your albuterol inhaler every 4-6 hours as necessary. rest drink plenty of fluids eat a regular diet as tolerated. Take medications for your symptoms: Tylenol for fever ibuprofen for aches and pains throat lozenge for sore throat or cough decongestant for runny nose etc. - Post Discharge Activity Work/Back to School Note: Back to Work
[2019-05-28] MEDS ORDERED: ALBUTEROL SO4 2.5/IPRATROPIUM 0.5 INH SOL 3 ML VIAL.NEB. NEB ONE (03:24)
[2019-05-28] MEDS ORDERED: ACETAMINOPHEN 325 MG TABLET (FP) ONE (03:41)
[2019-05-28 04:53] VITALS: BP 106/69; PULSE 95; TEMP 98.4
== END 2019-05-28 04:40 | disposition home or self-care (01) ==
LOC: JER 01:13
PROC: 3E0F7GC Introduction of Other Therapeutic Substance into Respiratory Tract, Via Natural or Artificial Opening (ICD-10-PCS; principal; 2019-05-28)
DX: J45.909 Unspecified asthma, uncomplicated (principal); B34.9 Viral infection, unspecified; E05.90 Thyrotoxicosis, unspecified without thyrotoxic crisis or storm
CPT/HCPCS: 94640; 99283-25

== ENCOUNTER 2019-12-12 13:58 | Inpatient (IN) | payer OTHER ==
[2019-12-12 14:03] VITALS: BMI 21.6
--- NOTE | 2019-12-12 14:05 | PDOC ---
History of Present Illness - General Chief Complaint: Asthma Stated Complaint: 21WKS/ ASTHMA Time Seen by Provider: 12/12/19 14:04 History Source: Patient - History of Present Illness Initial Comments: 12/12/19 14:14 19F at 27 weeks gestation w/hx asthma p/w acute onset sob, wheezing this morning. No complications in so far. She reports home monteleukast, combivent, and rescue albuterol. She reports that her asthma has been well controlled over the last several months. She reports that she and her partner had a recent mild URI. She denies any fevers, chills, chest pain, weakness, con fusion. She reports taking her usual asthma medications without improvement. 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 [employer] Past History - Medical History Allergies/Adverse Reactions: Allergies Allergy/AdvReac Type Severity Reaction Status Date / Time No Known Allergies Allergy Verified 12/12/19 14:00 Home Medications: Ambulatory Orders Albuterol Sulfate Inhaler - [Ventolin Hfa Inhaler -] 2 inh PO Q4H 05/11/19 predniSONE [Deltasone -] 40 mg PO DAILY #8 tablet 05/11/19 Cephalexin Monohydrate [Keflex -] 500 mg PO BID #14 capsule 09/17/19 Asthma: Yes Cancer: No Cardiac Disorders: No CVA: No COPD: No CHF: No DVT: No Dementia: No GI Disorders: No Disorders: No HTN: No Hypercholesterolemia: No Liver Disease: No Seizures: No Thyroid Disease: Yes (hyperactive) - Surgical History Abdominal Surgery: No Appendectomy: No Cardiac Surgery: No Cholecystectomy: No Lung Surgery: No Neurologic Surgery: No Orthopedic Surgery: No - Reproductive History Is Patient Now?: Yes (#): 2 Para: 0 - Immunization History Immunization Up to Date: Yes - Psycho-Social/Smoking History Smoking History: Never smoked Have you smoked in the past 12 months: No - Substance Abuse Hx (Audit-C & DAST Scrn) How often the patient has a drink containing alcohol: Never Score: In Men: 4 or > Positive; In Women: 3 or > Positive: 0 Screen Result (Pos requires Nsg. Audit-10AR): Negative In the last yr the pt used illegal drug/Rx for NonMed reason: No Score: Yes response is considered Positive: 0 Screen Result (Positive result requires Nsg. DAST-10): Negative Review of Systems - Review of Systems Able to Perform ROS?: Yes Comments:: 12/12/19 15:09 GENERAL/CONSTITUTIONAL: No fever or chills. No weakness. HEAD, EYES, EARS, NOSE AND THROAT: No change in vision. No ear pain or discharge. No sore throat. CARDIOVASCULAR: No chest pain or shortness of breath RESPIRATORY: Wheezing, sob. No cough, or hemoptysis. GASTROINTESTINAL: No nausea, vomiting, diarrhea or constipation. GENITOURINARY: No dysuria, frequency, or change in urination. MUSCULOSKELETAL: No joint or muscle swelling or pain. No neck or back pain. SKIN: No rash NEUROLOGIC: No headache, vertigo, loss of consciousness, or change in strength/sensation. ENDOCRINE: No increased thirst. No abnormal weight change HEMATOLOGIC/LYMPHATIC: No anemia, easy bleeding, or history of blood clots. ALLERGIC/IMMUNOLOGIC: No hives or skin allergy. *Physical Exam - Vital Signs Last Vital Signs Temp Pulse Resp BP Pulse Ox 98.6 F 135 H 20 115/65 100 12/12/19 14:00 12/12/19 14:00 12/12/19 14:00 12/12/19 14:00 12/12/19 14:00 - Physical Exam 12/12/19 15:09 GENERAL: Awake, alert, and fully oriented, speaking full sentences in no acute distress HEAD: No signs of trauma, normocephalic, atraumatic EYES: PERRLA, EOMI, sclera anicteric, conjunctiva clear ENT: Auricles normal inspection, hearing grossly normal, nares patent, oropharynx clear without exudates. Moist mucosa NECK: Normal ROM, supple, no lymphadenopathy, JVD, or masses LUNGS: Minimal expiratory wheezes, good air movement bilaterally. Mild distress, speaks full sentences HEART: Tachycardic. Regular rhythm, normal S1 and S2, no murmurs, rubs or gallops, peripheral pulses normal and equal bilaterally. ABDOMEN: Soft, nontender, normoactive bowel sounds. No guarding, no rebound. No masses EXTREMITIES : Normal inspection, Normal range of motion, no edema. No clubbing or cyanosis NEUROLOGICAL: Cranial nerves II through XII grossly intact. Normal speech, normal gait, no focal sensorimotor deficits SKIN: Warm, Dry, normal turgor, no rashes or lesions noted ED Treatment Course - LABORATORY CBC & Chemistry Diagram: 12/12/19 14:40 12/12/19 14:40 Medical Decision Making - Medical Decision Making 12/12/19 15:12 19F @ 27 weeks gestation with uncomplicated w/hx asthma pw one day of wheezing, sob c/w asthma exacerbation. PE also possible given tachycardia, hypoxia despite overall well appearance during . Plan: Albuterol x3 2L O2 CBC CMP EKG CXR Cardiac profile PT/INR APTT D-dimer POCUS Cardiac POCUS Lower extremity POCUS transabdominal Dispo: Pending 12/12/19 15:46 On reassessment, lungs are CTAB without wheezing. Remains hypoxic to 92, tachycardic to 130s 12/12/19 16:07 Plan for CTA chest to r/o PE. Discussed with patient regarding risks/benefits given . Consent form signed by patient. Discharge - Discharge Information Problems reviewed: Yes - Follow up/Referral Referrals: Tal King MD [Primary Care Provider] - - Patient Discharge Instructions - Post Discharge Activity
[2019-12-12] MEDS ORDERED: ALBUTEROL SO4 2.5/IPRATROPIUM 0.5 INH SOL 3 ML VIAL.NEB. NEB ONE (14:19)
[2019-12-12] MEDS ORDERED: ALBUTEROL SO4 0.042% IH SOL 1.25 MG/3 ML VIAL.NEB NEB ONE ×2 (14:22→17:28)
[2019-12-12] MEDS ORDERED: ALBUTEROL SO4 0.083% IH SOL 2.5 MG/3 ML VIAL.NEB. NEB ONE ×2 (14:27→17:32)
[2019-12-12] MEDS ORDERED: LACTATED RINGERS SOLUTION 1000 ML INFUS.BAG IV ONE (14:50)
[2019-12-12 15:11] LABS: BASO % 0.5 % (0-2.0); EOS % 6.9 % (0-4.5); HEMATOCRIT 32.8 % (32.4-45.2); LYMPH % 4.9 % (8-40); MCH 33.9 pg (25.7-33.7); MCHC 33.6 g/dl (32.0-36.0); MEAN CELL VOLUME 100.8 fl (80-96); MEAN PLT VOLUME 8.5 fl (7.5-11.1); MONO % 5.2 % (3.8-10.2); NEUT % 82.5 % (42.8-82.8); PLATELET COUNT 279 K/MM3 (134-434); RBC 3.25 M/mm3 (3.60-5.2); RDW 12.7 % (11.6-15.6)
[2019-12-12 15:25] LABS: INR 0.94 (0.83-1.09); PROTHROMBIN TIME (PATIENT) 11.1 SEC (9.7-13.0)
[2019-12-12 15:27] LABS: ACTIVATED PTT 26.4 SECONDS (25.2-36.5)
--- NOTE | 2019-12-12 15:41 | PDOC ---
Documentation entered by Buffy Mitchell SCRIBE, acting as scribe for Vivian Quarles MD. Vivian Quarles MD: This documentation has been prepared by the scribeStephen Ana, SCRIBE, under my direction and personally reviewed by me in its entirety. I confirm that the documentation accurately reflects all work, treatment, procedures, and medical decision making performed by me. Attending Attestation - Resident Resident Name: SergioSukhwinder - ED Attending Attestation I have performed the following: I have examined & evaluated the patient, The case was reviewed & discussed with the resident, I agree w/resident's findings & plan, Exceptions are as noted - HPI HPI: 12/12/19 14:11 19 yo currently 27 weeks female with HLD and asthma who presents to the ED, [facility], with SOB and wheezing since earlier today. Patient stated that her asthma has been under control for the last few months and reports that her and her partner both had a mild URI recently. (runny nose, cough sore throat, no f/c no n/v) no leg swelling, has had right leg cramps. h/o intubation 1 yr ago usual asthma trigger is getting sick. no seasonal trigger. used albuterol inhaler at home, no relief called EMS, was given decadron and 3 nebs by EMS. some relief. Patient denies: weakness, confusion, fevers, chills, chest pain, or any other related symptoms. Patient has been compliant with medications but is experiencing no improvement. Allergies: NKDA 12/12/19 15:34 - Physicial Exam PE: 12/12/19 15:38 Patient is awake alert no acute distress lungs are with clear breath sounds b ilaterally normal effort no external accessory muscle use no retractions. Pulse ox is 91% on room air with a good waveform heart is regular 30 murmurs rubs or gallops abdomen is soft nontender extremities are warm well perfused no appreciated edema or calf tenderness 2+ DP PT pulses bilaterally which are symmetric - Medical Decision Making 12/12/19 16:06 19 yo F with h;o asthma, currently 27 weeks here with c/o sob. asthma exacerbation, given nebs and steroids by EMS with persistant hypoxia. given nebs in ED. overall improved. still hypoxic 91% RA. differential pe, covid ( recent uri sxs, but afebrile), anemia , dehydration. plan focusd ED dvt study bilat lower ext. eval well being and cardiac us r/o cardiomyopathy, pericarditis or rv dilation/ strain. echo normal. no pericardial effusion. no rv dilation doppler bilat lower ext negative for proximal DVT, recommend repeat in 5- 7 days if persistant pain. heart rate 147 bpm. plan will need cta r/o PE as unexplained hypoxia despite little wheezing, persistant tachycardia . thryoid mild hyperthyroid, tsh mildly low, t4 mildly elevated. 12/12/19 17:49 Patient was advised of the risk and benefits of CT angios to rule out PE due to persistent hypoxia tachycardia did not correlate with her lung exam patient at this time is refusing her CT SANTOS. 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
[2019-12-12 15:52] LABS: ALBUMIN 3.2 g/dl (3.4-5.0); ALK PHOS 86 U/L (45-117); ANION GAP 12 MMOL/L (8-16); BILIRUBIN,TOTAL 0.6 mg/dL (0.2-1); BLOOD UREA NITROGEN 6.8 mg/dL (7-18); CALCIUM 8.9 mg/dL (8.5-10.1); CHLORIDE 108 mmol/L (98-107); CO2 18 mmol/L (21-32); CREATININE 0.6 mg/dL (0.55-1.3); GLUCOSE,RANDOM 106 mg/dL (74-106); N-TERMINAL BNP 9.4 pg/ml (5-125); POTASSIUM 3.6 mmol/L (3.5-5.1); SGOT/AST 12 U/L (15-37); SGPT/ALT 13 U/L (13-61); SODIUM 137 mmol/L (136-145); TOT PROT 6.7 g/dl (6.4-8.2)
[2019-12-12] MEDS ORDERED: MAGNESIUM SULFATE IN WATER 2 GM/50 ML IVPB IVPB ONE (17:33)
[2019-12-12 20:06] LABS: EPI CELLS >36 /uL (0-25.1); HYALINE CASTS 1 /uL (0-3.1); URINE APPEARANCE CLOUDY; URINE BACTERIA 4219 /uL (0-1359); URINE BILIRUBIN NEGATIVE (NEGATIVE); URINE COLOR YELLOW; URINE GLUCOSE (UA) NEGATIVE (NEGATIVE); URINE KETONE 3+ (NEGATIVE); URINE LEUK ESTERASE 2+ (NEGATIVE); URINE NITRITE NEGATIVE (NEGATIVE); URINE PROTEIN NEGATIVE (NEGATIVE); URINE RBC 4 /uL (0-23.9); URINE UROBILINOGEN 0.2 mg/dL (0.2-1.0); URINE WBC 80 /uL (0-25.8)
[2019-12-12] MEDS ORDERED: methylPREDNISolone NA SUCC 125 MG/2 ML VIAL IVPUSH ONE (20:10)
[2019-12-12] MEDS ORDERED: LEVALBUTEROL HCL 0.63 MG/3 ML VIAL.NEB. IH STA (20:10)
[2019-12-12] MEDS ORDERED: CEFTRIAXONE 1,000 MG in DEXTROSE 5%-WATER - 50 ML IVPB ONE (20:12)
[2019-12-12] MEDS ORDERED: methylPREDNISolone NA SUCC 125 MG/2 ML VIAL ONE (20:21)
[2019-12-12] MEDS ORDERED: CEFTRIAXONE 1 GM/50 ML BAG ONE (20:22)
[2019-12-12] MEDS ORDERED: ENOXAPARIN NA (PORCINE) 80 MG/0.8 ML DISP.SYRIN SQ ONE (20:24)
[2019-12-12] MEDS ORDERED: ENOXAPARIN NA (PORCINE) 100 MG/1 ML DISP.SYRIN SQ ONE (21:01)
--- NOTE | 2019-12-12 21:09 | PDOC ---
*Physical Exam - Vital Signs Last Vital Signs Temp Pulse Resp BP Pulse Ox 98.6 F 126 H 17 111/66 95 12/12/19 14:00 12/12/19 19:20 12/12/19 19:20 12/12/19 19:20 12/12/19 19:20 ED Treatment Course - LABORATORY CBC & Chemistry Diagram: 12/12/19 14:40 12/12/19 14:40 - ADDITIONAL ORDERS Additional order review: Laboratory Results 12/12/19 12/12/19 12/12/19 14:40 14:40 14:40 PT with INR 11.10 INR 0.94 PTT (Actin FS) 26.4 D-Dimer 1195 H Sodium 137 Potassium 3.6 Chloride 108 H Carbon Dioxide 18 L Anion Gap 12 BUN 6.8 L Creatinine 0.6 Est GFR (CKD-EPI)AfAm 151.01 Est GFR (CKD-EPI)NonAf 130.29 Random Glucose 106 Calcium 8.9 Total Bilirubin 0.6 AST 12 L ALT 13 Alkaline Phosphatase 86 Creatine Kinase 41 Troponin I < 0.02 B-Natriuretic Peptide 9.4 Total Protein 6.7 Albumin 3.2 L TSH 0.17 L Thyroxine (T4) 17.8 H 12/12/19 14:40 RBC 3.25 L MCV 100.8 H MCHC 33.6 RDW 12.7 MPV 8.5 Neutrophils % 82.5 Lymphocytes % 4.9 L Monocytes % 5.2 Eosinophils % 6.9 H Basophils % 0.5 - Medications Given in the ED: ED Medications Discontinued Medications Generic Name Dose Route Start Last Admin Trade Name Freq PRN Reason Stop Dose Admin Albuterol Sulfate 3 amp 12/12/19 14:22 12/12/19 14:31 Ventolin 0.042trength) - [facility] 12/12/19 14:23 3 amp ONCE ONE Administration Albuterol Sulfate 1 amp 12/12/19 17:28 12/12/19 17:30 Ventolin 0.042trength) - [facility] 12/12/19 17:29 1 amp ONCE ONE Administration Albuterol/Ipratropium 1 amp 12/12/19 14:19 12/12/19 14:25 Duoneb - [facility] 12/12/19 14:20 Not Given ONCE ONE Magnesium Sulfate/Dextrose 1 100 mls @ 100 mls/hr 12/12/19 17:28 12/12/19 17:40 gm/ Miscellaneous IVPB 12/12/19 18:27 100 mls/hr ONCE ONE Administration Ceftriaxone Sodium 1,000 mg/ 50 mls @ 100 mls/hr 12/12/19 20:12 12/12/19 20:45 Dextrose IVPB 12/12/19 20:41 100 mls/hr ONCE ONE Administration Lactated Ringer's 1,000 ml 12/12/19 14:50 12/12/19 16:19 Lactated Ringers Solution IV 12/12/19 14:51 1,000 ml ONCE ONE Administration Levalbuterol HCl 0.63 mg 12/12/19 20:10 12/12/19 20:45 Xopenex IH 12/12/19 20:11 0.63 mg ONCE STA Administration Methylprednisolone Sodium Succinate 125 mg 12/12/19 20:10 12/12/19 20:45 Solu-Medrol - IVPUSH 12/12/19 20:11 125 mg ONCE ONE Administration Medical Decision Making - Critical Care Time Total Critical Care Time (minutes): 90 Critical Care Statement: The care of this patient involved high complexity decision making to prevent further life threatening deterioration of the patie nt's condition and/or to evaluate & treat vital organ system(s) failure or risk of failure. - Medical Decision Making 12/12/19 21:05 Patient remains tachycardic, on reevaluation at patient family request patient developing increasing dyspnea now with bilateral expiratory wheeze and diminished breath sounds Solu-Medrol 125 mg as well as Xopenex x1 administered She is post magnesium and albuterol/Atrovent as well Lovenox 1.5 mg/kg subcu given for remaining possibility of pulmonary embolus as well as patient has refused CTA Case discussed directly with the ICU attending as well as Dr. Sifuentes Patient will be placed in the ICU for closer monitoring of respiratory status 12/12/19 21:08 Discharge - Discharge Information Problems reviewed: Yes Clinical Impression/Diagnosis: Asthma exacerbation, Hypoxia, Condition: Good - Follow up/Referral - Patient Discharge Instructions - Post Discharge Activity
--- NOTE | 2019-12-12 22:54 | CONSULT ---
Consult Consult Specialty:: OBGYN Reason for Consultation:: 27 week , asthma exacerbation - History of Present Illness History of Present Illness: 19yo @ 27.1wks by leonard who presented to the ER with SOB for one day No VB/LOF. No cramping. No ctx. Reports worsening SOB despite home meds today; both she and partner have had recent URI symptoms Pt has known history of asthma, with prior hospitalizatons and intubation. Asthma is managed by Pulmonology otherwise uncomplicated PNC @ [address] - History Source History Provided By: Patient Limitations to Obtaining History: No Limitations - Past Medical History Cardio/Vascular: Yes: Other (no h/o palpitation ) Pulmonary: Yes: Asthma (inhaler prn ) Gastrointestinal: No: Ascites, Cancer, Constipation, Crohn's Disease, Diverticulitis, Diverticulosis, Esophageal Varices, Gastritis, GERD, GI Bleed, Hemorrhoids, Hiatal Hernia, Inflamatory Bowel Disease, Irritable Bowel Disease, Pancreatitis, Peptic Ulcer Disease, Ulcerative Colitis, Other Hepatobiliary: No: Cirrhosis, Cholelithiasis, Cholecystitis, Choledocholithiasis, Hepatitis A, Hepatitis B, Hepatitis C, Other Renal/: No: Renal Failure, Renal Inusuff, BPH, Cancer, Hematuria, Hemodialysis, Neurogenic Bladder, Renal Calculi, UTI, Other Reproductive: No: Ectopic , Endometriosis, Fibroids, PID, Polycystic O vary Syndrome, Postmenopausal, Other ...LMP: 06/10/19 ...: Yes Heme/Onc: Yes: Anemia Infectious Disease: Yes: STD's (chlamydia in 2016 treated ) Psych: No: Addictions, Anxiety, Bipolar, Depression, Panic, Psychosis, Schizophrenia, Other Musculoskeletal: No: Bursitis, Chronic low back pain, Hemiparesis, Hemiplegia, Osteoarthritis, Paraplegia, Other Rheumatology: No: Fibromyalgia, Gout, Lupus, Rheumatoid Arthritis, Sarcoidosis, Vasculitis, Other ENT: No: Allergic Rhinitis, Sinusitis, Other Endocrine: Yes: Hyperthyroidism (rx Methamezole 10 mg daily, last taken 10/23/17) - Past Surgical History Past Surgical History: Yes: None - Alcohol/Substance Use Hx Alcohol Use: No History of Substance Use: reports: Marijuana (3 times aweek ) Date of Last Use: 10/18/17 (approx 1 wk ago ) - Smoking History Smoking history: Never smoked Have you smoked in the past 12 months: No - Social History History of Recent Travel: No Home Medications - Allergies Allergies/Adverse Reactions: Allergies Allergy/AdvReac Type Severity Reaction Status Date / Time No Known Allergies Allergy Verified 12/12/19 14:00 - Home Medications Home Medications: Ambulatory Orders Albuterol Sulfate Inhaler - [Ventolin Hfa Inhaler -] 1 - 2 inh PO Q4H 12/12/19 Budesonide/Formeterol Fumarate [SYMBICORT 80/4.5mcg -] 1 inh PO BID 12/12/19 Montelukast Na [Singulair -] 10 mg PO HS 12/12/19 Pnv No.95/Ferrous Fum/Folic AC [ Vitamin Tablet] 1 tab PO DAILY 12/12/19 Review of Systems - Review of Systems Constitutional: reports: No Symptoms Respiratory: reports: SOB, SOB on Exertion, Wheezing Gastrointestinal: reports: No Symptoms Genitourinary: reports: No Symptoms Physical Exam Vital Signs: Vital Signs Temperature 98.9 F 12/12/19 21:42 Pulse Rate 117 H 12/12/19 21:42 Respiratory Rate 22 H 12/12/19 21:42 Blood Pressure 117/72 12/12/19 21:42 O2 Sat by Pulse Oximetry (%) 97 12/12/19 21:42 Constitutional: Yes: Well Nourished, Mild Distress Eyes: Yes: WNL, Conjunctiva Clear, EOM Intact HENT: Yes: WNL, Atraumatic, Normocephalic Gastrointestinal: Yes: Soft, Other (gravid, NT) Labs: CBC, BMP 12/12/19 14:40 12/12/19 14:40 Imaging - Results X-ray: Report Reviewed Problem List - Problems (1) Asthma exacerbation Code(s): J45.901 - UNSPECIFIED ASTHMA WITH (ACUTE) EXACERBATION Assessment/Plan 19yo @ 27.1wks here with asthma exacerbation Appreciate ICU care/admission Will defer asthma exacerbation management to ICU/pulm team Pt declined CTA for r/o PE; advised Heparin/Lovenox safe to use if high suspicion. Will cont to address with patient. CTA permissible given mortality 2/2 PE risk. +dopplers tonight which will suffice given maternal condition; will order sono and NST for tomorrow; NST q shift vitamin daily [facility] care OB team will continue to monitor Marcin Sifuentes MD
--- NOTE | 2019-12-12 23:07 | CONSULT ---
Consultation: REQUESTING PROVIDER: CONSULT REQUEST: We have been asked to medically evaluate this patient for shortness of breath. HISTORY OF PRESENT ILLNESS: 19 year old female, at 27 weeks gestation with PMH asthma and hyperthyroidism presented to the ED with shortness of breath that started this m orning while she was eating. She used her inhaler with no improvement. Pt stated that she has experienced this before. She had 2 previous hospitalizations in 2019 for asthma exacerbation, one of which she required intubation. Pt endorsed to being hospitalized 6 times for asthma exacerbation in her lifetime. Denies fevers, chills, chest pain, abdominal pain, numbness or tingling. In the ED, pt received 4 amps of albuterol, levalbuterol, magnesium, solu- medrol, ceftriaxone (for asymptomatic UTI), and lovenox (for suspected PE). Pt stated that this treatment has improved her SOB. Pt is declining CTA at this time due to fear of harm to her baby. Follows Dr. Kaila Ibarra for [employer] (last visit 10/2019). REVIEW OF SYSTEMS: As per HPI PHYSICAL EXAMINATION Last Vital Signs Temp Pulse Resp BP Pulse Ox 98.7 F 118 H 20 120/74 97 12/12/19 22:00 12/12/19 22:00 12/12/19 22:00 12/12/19 22:00 12/12/19 21:42 GENERAL: AAOx3, in mild distress. HEENT: NCAT, EOMI, on nasal cannula, moist mucus membranes. LUNGS: b/l diffuse wheezes auscultated. No accessory muscle use. HEART: Tachycardic. Regular rhythm, S1, S2 present. No murmurs. ABDOMEN: abdomen. No visible scars. EXTREMITIES: Warm, well-perfused. No edema. SKIN: Warm and dry Laboratory Last Values WBC 15.0 K/mm3 (4.0-10.0) H 12/12/19 14:40 RBC 3.25 M/mm3 (3.60-5.2) L 12/12/19 14:40 Hgb 11.0 GM/dL (10.7-15.3) 12/12/19 14:40 Hct 32.8 % (32.4-45.2) D 12/12/19 14:40 MCV 100.8 fl (80-96) H 12/12/19 14:40 MCH 33.9 pg (25.7-33.7) H 12/12/19 14:40 MCHC 33.6 g/dl (32.0-36.0) 12/12/19 14:40 RDW 12.7 % (11.6-15.6) 12/12/19 14:40 Plt Count 279 K/MM3 (134-434) 12/12/19 14:40 MPV 8.5 fl (7.5-11.1) 12/12/19 14:40 Absolute Neuts (auto) 12.4 K/mm3 (1.5-8.0) H 12/12/19 14:40 Neutrophils % 82.5 % (42.8-82.8) 12/12/19 14:40 Lymphocytes % 4.9 % (8-40) L 12/12/19 14:40 Monocytes % 5.2 % (3.8-10.2) 12/12/19 14:40 Eosinophils % 6.9 % (0-4.5) H 12/12/19 14:40 Basophils % 0.5 % (0-2.0) 12/12/19 14:40 Nucleated RBC % 0 % (0-0) 12/12/19 14:40 PT with INR 11.10 SEC (9.7-13.0) 12/12/19 14:40 INR 0.94 (0.83-1.09) 12/12/19 14:40 PTT (Actin FS) 26.4 SECONDS (25.2-36.5) 12/12/19 14:40 D-Dimer 1195 ng/ml (0-500) H 12/12/19 14:40 Sodium 137 mmol/L (136-145) 12/12/19 14:40 Potassium 3.6 mmol/L (3.5-5.1) 12/12/19 14:40 Chloride 108 mmol/L (98-107) H 12/12/19 14:40 Carbon Dioxide 18 mmol/L (21-32) L 12/12/19 14:40 Anion Gap 12 MMOL/L (8-16) 12/12/19 14:40 BUN 6.8 mg/dL (7-18) L 12/12/19 14:40 Creatinine 0.6 mg/dL (0.55-1.3) 12/12/19 14:40 Est GFR (CKD-EPI)AfAm 151.01 12/12/19 14:40 Est GFR (CKD-EPI)NonAf 130.29 12/12/19 14:40 Random Glucose 106 mg/dL (74-106) 12/12/19 14:40 Calcium 8.9 mg/dL (8.5-10.1) 12/12/19 14:40 Total Bilirubin 0.6 mg/dL (0.2-1) 12/12/19 14:40 AST 12 U/L (15-37) L 12/12/19 14:40 ALT 13 U/L (13-61) 12/12/19 14:40 Alkaline Phosphatase 86 U/L (45-117) 12/12/19 14:40 Creatine Kinase 41 U/L (26-192) 12/12/19 14:40 Troponin I < 0.02 ng/ml (0.00-0.05) 12/12/19 14:40 B-Natriuretic Peptide 9.4 pg/ml (5-125) 12/12/19 14:40 Total Protein 6.7 g/dl (6.4-8.2) 12/12/19 14:40 Albumin 3.2 g/dl (3.4-5.0) L 12/12/19 14:40 TSH 0.17 uIU/ml (0.358-3.74) L 12/12/19 14:40 Thyroxine (T4) 17.8 ug/dl (4.5-13.9) H 12/12/19 14:40 Urine Color Yellow 12/12/19 19:47 Urine Appearance Cloudy 12/12/19 19:47 Urine pH 7.0 (5.0-8.0) 12/12/19 19:47 Ur Specific [place] 1.013 (1.010-1.035) 12/12/19 19:47 Urine Protein Negative (NEGATIVE) 12/12/19 19:47 Urine Glucose (UA) Negative (NEGATIVE) 12/12/19 19:47 Urine Ketones 3+ (NEGATIVE) H 12/12/19 19:47 Urine Blood Negative (NEGATIVE) 12/12/19 19:47 Urine Nitrite Negative (NEGATIVE) 12/12/19 19:47 Urine Bilirubin Negative (NEGATIVE) 12/12/19 19:47 Urine Urobilinogen 0.2 mg/dL (0.2-1.0) 12/12/19 19:47 Ur Leukocyte Esterase 2+ (NEGATIVE) H 12/12/19 19:47 Urine WBC (Auto) 80 /uL (0-25.8) 12/12/19 19:47 Urine RBC (Auto) 4 /uL (0-23.9) 12/12/19 19:47 Urine Casts (Auto) 1 /uL (0-3.1) 12/12/19 19:47 U Epithel Cells (Auto) >36 /uL (0-25.1) 12/12/19 19:47 Urine Bacteria (Auto) 4219 /uL (0-1359) 12/12/19 19:47 CXR 12/12/2019 A single frontal portable projection of the chest at 2:54 PM is submitted. The heart size is within normal limits. The lung mcclain are free of pulmonary infiltrates or pleural effusions. IMPRESSION: No acute disease. ASSESSMENT/PLAN: 19 year old female, at 27 weeks gestation with PMH asthma and hyperthyroidism presented to the ED with shortness of breath. Given pt's history, physical exam, and laboratory findings, pt likely has asthma exacerbation. However, PE cannot be ruled out due to pt declining CTA. Neuro - Alert and oriented Cardiac -Tachycardic, possibly due to albuterol treatment vs due to increased work of breathing Pulmonary Asthma exacerbation likely, unable to r/o PE - c/w levalbuterol - c/w duo-neb - Given lovenox for possible PE - supplemental oxygen to keep SpO2 >95% - f/u ABG - CXR finding above - Pt declines CTA at this time - b/l LE duplex in ED negative [employer] 27 weeks gestation H/o miscarriages - [employer] Service Representative consulted. Recommended vitamins daily. Sono and NST tomorrow. Ob team will continue to monitor. -Consider outpatient AntiPhospholipid antibody workup. GI - No acute issues Endo Hyperthyroidism - Not on medication due to potential adverse effects FEN - No standing fluids - Monitor electrolytes and replete - Full diet LTD -None Ppx - DVT: Lovenox Dispo: We will continue to follow the patient. Thank you for this consultative opportunity. Visit type - Emergency Visit Emergency Visit: Yes ED Registration Date: 12/12/19 Care time: The patient presented to the Emergency Department on the above date and was hospitalized for further evaluation of their emergent condition. - New Patient This patient is new to me today: Yes Date on this admission: 12/13/19 - Critical Care Critical Care patient: Yes Total Critical Care Time (in minutes): 36 Critical Care Statement: The care of this patient involved high complexity decision making to prevent further life threatening deterioration of the patient's condition and/or to evaluate & treat vital organ system(s) failure or risk of failure. ATTENDING PHYSICIAN STATEMENT I saw and evaluated the patient. I reviewed the resident's note and discussed the case with the resident. I agree with the resident's findings and plan as documented. SUBJECTIVE: OBJECTIVE: ASSESSMENT AND PLAN:
[2019-12-12] MEDS ORDERED: LEVALBUTEROL HCL 0.63 MG/3 ML VIAL.NEB. IH ONE (23:25)
[2019-12-13] MEDS ORDERED: ALBUTEROL SO4 2.5/IPRATROPIUM 0.5 INH SOL 3 ML VIAL.NEB. NEB ONE ×3 (00:13→06:58)
[2019-12-13 01:12] LABS: ALLENS TEST POSITIVE; ARTERIAL BLD GAS O2 SATURATION 98.2 mmHg (95-98); ARTERIAL BLOOD GAS BASE EXCESS -5.5 mmol/L (-2-2); ARTERIAL BLOOD GAS PO2 108.9 mmHg (80-100); ARTERIAL BLOOD GAS pH 7.433 (7.350-7.450)
--- NOTE | 2019-12-13 08:03 | PN ---
Progress Note (short form) - Note Progress Note: 19yo @ 27.2wks here with asthma exacerbation. Feeling better this morning. Less SOB and air hunger No OB issues overnight. No VB/LOF. +FM. No contractions VSS reviewed, tachycardia improving Will do OB sono today and NST this evening Continue pulm care are per ICU team Discussed CTA with patient, risks of undiagnosed PE without testing vs risks to fetus/. All questions answered Will cont to follow. L&D nurses will come bedside to do NST while in ICU Marcin Sifuentes MD Problem List - Problems (1) Asthma exacerbation Code(s): J45.901 - UNSPECIFIED ASTHMA WITH (ACUTE) EXACERBATION
[2019-12-13] MEDS ORDERED: ALBUTEROL SO4 0.083% IH SOL 2.5 MG/3 ML VIAL.NEB. NEB PRN (10:29)
[2019-12-13] MEDS ORDERED: PT OWN MED DRAWER 7, Y5N ONE (11:10)
[2019-12-13] MEDS: methylPREDNISolone NA SUCC 40 MG/1 ML VIAL IVPUSH SCH ×2 (11:15→18:06)
[2019-12-13] MEDS: ENOXAPARIN NA (PORCINE) 60 MG/0.6 ML DISP.SYRIN SQ SCH ×2 (11:16→21:30)
[2019-12-13] MEDS ORDERED: ALBUTEROL SO4 2.5/IPRATROPIUM 0.5 INH SOL 3 ML VIAL.NEB. NEB PRN (12:57)
[2019-12-13] MEDS: PRENATAL VITAMINS W/ FOLIC ACID TABLET (FP) PO SCH (13:43)
--- NOTE | 2019-12-13 13:58 | PN ---
Teaching Attending Note Name of Resident: Christopher Banuelos ATTENDING PHYSICIAN STATEMENT I saw and evaluated the patient. I reviewed the resident's note and discussed the case with the resident. I agree with the resident's findings and plan as documented. SUBJECTIVE: Patient seen and examined in the ICU. Awake and alert on VM O2. Mildly tacypneic at rest but reports that her breathing is better this morning. Dry cough. No hemoptysis. No CP. Intake & Output 12/10/19 12/11/19 12/12/19 12/13/19 23:59 23:59 23:59 23:59 Weight 134 lb Last Vital Signs Temp Pulse Resp BP Pulse Ox 98.5 F 112 H 31 H 102/57 L 96 12/13/19 10:00 12/13/19 10:00 12/13/19 10:00 12/13/19 10:00 12/13/19 10:00 Active Medications Albuterol Sulfate (Ventolin 0.083% Nebulizer Soln -) 1 amp NEB Q4H PRN PRN Reason: SHORT OF BREATH/WHEEZING Albuterol/Ipratropium (Duoneb -) 1 amp NEB Q6H PRN PRN Reason: ASTHMA Enoxaparin Sodium (Lovenox -) 60 mg SQ BID [facility] Last Admin: 12/13/19 11:16 Dose: 60 mg Documented by: Methylprednisolone Sodium Succinate (Solu-Medrol -) 80 mg IVPUSH Q8H-IV [facility] Last Admin: 12/13/19 11:15 Dose: 80 mg Documented by: Montelukast Sodium (Singulair -) 10 mg PO [facility] Multivit/Folic Acid/Iron ( Vitamins (Sjr) -) 1 tab PO DAILY [facility] Last Admin: 12/13/19 13:43 Dose: 1 tab Documented by: GENERAL: AAOx3, mildly tachypneic at rest on VM O2 HEENT: NCAT, EOMI, on nasal cannula, moist mucus membranes. LUNGS: b/l diffuse expiratory wheezes. HEART: Tachycardic. Regular rhythm, S1, S2 present. No murmurs. ABDOMEN: abdomen. No visible scars. EXTREMITIES: Warm, well-perfused. No edema. SKIN: Warm and dry Laboratory Last Values WBC 15.0 K/mm3 (4.0-10.0) H 12/12/19 14:40 RBC 3.25 M/mm3 (3.60-5.2) L 12/12/19 14:40 Hgb 11.0 GM/dL (10.7-15.3) 12/12/19 14:40 Hct 32.8 % (32.4-45.2) D 12/12/19 14:40 MCV 100.8 fl (80-96) H 12/12/19 14:40 MCH 33.9 pg (25.7-33.7) H 12/12/19 14:40 MCHC 33.6 g/dl (32.0-36.0) 12/12/19 14:40 RDW 12.7 % (11.6-15.6) 12/12/19 14:40 Plt Count 279 K/MM3 (134-434) 12/12/19 14:40 MPV 8.5 fl (7.5-11.1) 12/12/19 14:40 Absolute Neuts (auto) 12.4 K/mm3 (1.5-8.0) H 12/12/19 14:40 Neutrophils % 82.5 % (42.8-82.8) 12/12/19 14:40 Lymphocytes % 4.9 % (8-40) L 12/12/19 14:40 Monocytes % 5.2 % (3.8-10.2) 12/12/19 14:40 Eosinophils % 6.9 % (0-4.5) H 12/12/19 14:40 Basophils % 0.5 % (0-2.0) 12/12/19 14:40 Nucleated RBC % 0 % (0-0) 12/12/19 14:40 PT with INR 11.10 SEC (9.7-13.0) 12/12/19 14:40 INR 0.94 (0.83-1.09) 12/12/19 14:40 PTT (Actin FS) 26.4 SECONDS (25.2-36.5) 12/12/19 14:40 D-Dimer 1195 ng/ml (0-500) H 12/12/19 14:40 Sodium 137 mmol/L (136-145) 12/12/19 14:40 Potassium 3.6 mmol/L (3.5-5.1) 12/12/19 14:40 Chloride 108 mmol/L (98-107) H 12/12/19 14:40 Carbon Dioxide 18 mmol/L (21-32) L 12/12/19 14:40 Anion Gap 12 MMOL/L (8-16) 12/12/19 14:40 BUN 6.8 mg/dL (7-18) L 12/12/19 14:40 Creatinine 0.6 mg/dL (0.55-1.3) 12/12/19 14:40 Est GFR (CKD-EPI)AfAm 151.01 12/12/19 14:40 Est GFR (CKD-EPI)NonAf 130.29 12/12/19 14:40 Random Glucose 106 mg/dL (74-106) 12/12/19 14:40 Calcium 8.9 mg/dL (8.5-10.1) 12/12/19 14:40 Total Bilirubin 0.6 mg/dL (0.2-1) 12/12/19 14:40 AST 12 U/L (15-37) L 12/12/19 14:40 ALT 13 U/L (13-61) 12/12/19 14:40 Alkaline Phosphatase 86 U/L (45-117) 12/12/19 14:40 Creatine Kinase 41 U/L (26-192) 12/12/19 14:40 Troponin I < 0.02 ng/ml (0.00-0.05) 12/12/19 14:40 B-Natriuretic Peptide 9.4 pg/ml (5-125) 12/12/19 14:40 Total Protein 6.7 g/dl (6.4-8.2) 12/12/19 14:40 Albumin 3.2 g/dl (3.4-5.0) L 12/12/19 14:40 TSH 0.17 uIU/ml (0.358-3.74) L 12/12/19 14:40 Thyroxine (T4) 17.8 ug/dl (4.5-13.9) H 12/12/19 14:40 Urine Color Yellow 12/12/19 19:47 Urine Appearance Cloudy 12/12/19 19:47 Urine pH 7.0 (5.0-8.0) 12/12/19 19:47 Ur Specific [place] 1.013 (1.010-1.035) 12/12/19 19:47 Urine Protein Negative (NEGATIVE) 12/12/19 19:47 Urine Glucose (UA) Negative (NEGATIVE) 12/12/19 19:47 Urine Ketones 3+ (NEGATIVE) H 12/12/19 19:47 Urine Blood Negative (NEGATIVE) 12/12/19 19:47 Urine Nitrite Negative (NEGATIVE) 12/12/19 19:47 Urine Bilirubin Negative (NEGATIVE) 12/12/19 19:47 Urine Urobilinogen 0.2 mg/dL (0.2-1.0) 12/12/19 19:47 Ur Leukocyte Esterase 2+ (NEGATIVE) H 12/12/19 19:47 Urine WBC (Auto) 80 /uL (0-25.8) 12/12/19 19:47 Urine RBC (Auto) 4 /uL (0-23.9) 12/12/19 19:47 Urine Casts (Auto) 1 /uL (0-3.1) 12/12/19 19:47 U Epithel Cells (Auto) >36 /uL (0-25.1) 12/12/19 19:47 Urine Bacteria (Auto) 4219 /uL (0-1359) 12/12/19 19:47 ASSESSMENT/PLAN: AE of Asthma at 27 weeks gestation Hyperthyroidism Low clinical suspicion of PE (?) Antiphospholipid Syndrome (history of miscarriage x 2) R/O COVID19 : low suspicion Risks and benefits of respiratory treatments discussed at length with the patient. At this point the benefit greatly outweighs the risk. The patient has agreed to medical management of her Bronchospasm. Supplemental O2 as needed Measure PEF Would continue AC for now until COVID19 testing is resulted monitoring per OB. Hold IVF VTE prophylaxis Patient has refused further diagnostic work up for PE Check official LE [facility] ICU monitoring for now Dr Humphrey Critical care time spent in reviewing chart, evaluating patient and formulating plan - 36 minutes.
--- NOTE | 2019-12-13 14:24 | PN ---
Physical Exam: SUBJECTIVE: Patient seen and examined, on ventimask, able to speak in full sentences, in no acute distress. OBJECTIVE: Vital Signs Period Temp Pulse Resp BP Sys/Segal Pulse Ox Last 24 Hr 98.0 F-98.9 F 98-137 16-32 94-120/54-74 92-100 GENERAL: The patient is awake, alert, and fully oriented, in no acute distress. HEAD: Normal with no signs of trauma. EYES: PERRL, extraocular movements intact, sclera anicteric, conjunctiva clear. No ptosis. NECK: Trachea midline, full range of motion, supple. LUNGS: Audible wheezing heard b/l HEART: Regular rate and rhythm, S1, S2 without murmur, rub or gallop. ABDOMEN: Ptn 27 wks , Soft, nontender EXTREMITIES: 2+ pulses, warm, well-perfused, no edema. NEUROLOGICAL: Normal speech, gait not observed. PSYCH: Normal mood, normal affect. SKIN: Warm, dry, normal turgor, no rashes or lesions noted CBC, BMP 12/12/19 14:40 12/12/19 14:40 ABG Results ABG pH 7.433 (7.350-7.450) 12/13/19 00:50 ABG HCO3 17.3 mmol/L (22-27) L 12/13/19 00:50 ABG O2 Sat (Measured) 98.2 mmHg (95-98) H 12/13/19 00:50 ABG O2 Content No Result Required. 12/13/19 00:50 ABG Base Excess -5.5 mmol/L (-2-2) L 12/13/19 00:50 INR, PTT INR 0.94 (0.83-1.09) 12/12/19 14:40 Troponin, BNP 12/12/19 14:40 Troponin I < 0.02 B-Natriuretic Peptide 9.4 CXR 12/12/2019 A single frontal portable projection of the chest at 2:54 PM is submitted. The heart size is within normal limits. The lung mcclain are free of pulmonary infiltrates or pleural effusions. IMPRESSION: No acute disease. Active Medications Generic Name Dose Route Start Last Admin Trade Name Freq PRN Reason Stop Dose Admin Albuterol Sulfate 1 amp 12/13/19 10:29 Ventolin 0.083% Nebulizer Soln - NEB Q4H PRN SHORT OF BREATH/WHEEZING Albuterol/Ipratropium 1 amp 12/13/19 12:57 Duoneb - NEB Q6H PRN ASTHMA Enoxaparin Sodium 60 mg 12/13/19 10:30 12/13/19 11:16 Lovenox - SQ 60 mg BID MESSI Administration Methylprednisolone Sodium Succinate 80 mg 12/13/19 10:30 12/13/19 11:15 Solu-Medrol - IVPUSH 80 mg Q8H-IV MESSI Administration Montelukast Sodium 10 mg 12/13/19 22:00 Singulair - PO HS MESSI Multivit/Folic Acid/Iron 1 tab 12/13/19 10:00 12/13/19 13:43 Vitamins (Sjr) - PO 1 tab DAILY MESSI Administration ASSESSMENT/PLAN: 19 year old female, (2 miscarriages before 20 weeks, 1 ectopic s/p laproscopic removal) at 27.2 weeks gestation with PMH asthma and hyperthyroidism presented to the ED with shortness of breath. Rule out acute on chronic asthma exacerbation vs. PE. Ptn declining CTA 2/2 risk to fetus. NEURO/GENERAL - VSS - Alert and oriented CARDIAC -Tachycardic ~130s 2/2 to AoC Asthma Exacerbation, can not r.o. PE -Possibly 2/2 Ventolin -Possibly 2/2 bronchospasm -POC Echo(12/12): -No R Heart Strain -No Pericardial Effusion -Normal L Ventricular contractility PULM -Acute on Chronic Asthma Exacerbation unable to r/o PE - Hx of multiple hospitalizations for asthma re - c/w Ventolin 1amp q4 - c/w duo-neb 1 amp q6 - c/w Solumedrol 80mg q8 - c/w Singulair 10mg HS - c/w Lovenox 1mg/kg bc can not r/o PE - supplemental oxygen to keep SpO2 >90% -Low clinical suspicion of PE -Patient Refused CTA -FU LE Duplex -Check Peak Flow OBGYN - @ 27.2 weeks -Hx of Miscarriage -Sports Physical Therapist consulted. Recommended vitamins daily. -NST Daily 2/2 viability of fetus and gestational age -Consider outpatient Anti phospholipid antibody workup. GI -No active issues -No PPx ENDOCRINE -Hx of Hyperthyroidism -Not on medication due to potential adverse effect -Monitor BP/HR INFECTIOUS -Covid negative FEN -No standing fluids -Monitor electrolytes and replete -Full diet Ppx -Full Dose Lovenox Dispo: We will continue to follow the patient in the ICU Visit type - Emergency Visit Emergency Visit: No - New Patient This patient is new to me today: Yes Date on this admission: 12/13/19 - Critical Care Critical Care patient: Yes Total Critical Care Time (in minutes): 36 Critical Care Statement: The care of this patient involved high complexity deci danie making to prevent further life threatening deterioration of the patient's condition and/or to evaluate & treat vital organ system(s) failure or risk of failure. - Discharge Referral Referred to [facility] Med P.C.: No ATTENDING PHYSICIAN STATEMENT I saw and evaluated the patient. I reviewed the resident's note and discussed the case with the resident. I agree with the resident's findings and plan as documented. SUBJECTIVE: OBJECTIVE: ASSESSMENT AND PLAN:
--- NOTE | 2019-12-13 16:56 | EKG ---
Test Reason : Blood Pressure : / mmHG Vent. Rate : 135 BPM Atrial Rate : 135 BPM P-R Int : 134 ms QRS Dur : 070 ms QT Int : 300 ms P-R-T Axes : 085 056 053 degrees QTc Int : 450 ms SINUS TACHYCARDIA POSSIBLE LEFT ATRIAL ENLARGEMENT NONSPECIFIC ST ABNORMALITY ABNORMAL ECG WHEN COMPARED WITH ECG OF 11-MAY-2019 22:21, ST NOW DEPRESSED IN ANTERIOR LEADS Confirmed by HORTENSIA FIELDS, HERMAN ([id number]) on 12/13/2019 4:55:41 PM Referred By: Confirmed By:HERMAN BAZAN MD
[2019-12-13] MEDS: MONTELUKAST NA 10 MG TABLET PO SCH (21:28)
[2019-12-14] MEDS: methylPREDNISolone NA SUCC 40 MG/1 ML VIAL IVPUSH SCH ×3 (01:32→18:44)
[2019-12-14 07:35] LABS: BASO % 0.1 % (0-2.0); EOS % 0.1 % (0-4.5); HEMATOCRIT 32.2 % (32.4-45.2); HEMOGLOBIN 10.7 GM/dL (10.7-15.3); LYMPH % 3.2 % (8-40); MCH 33.4 pg (25.7-33.7); MCHC 33.3 g/dl (32.0-36.0); MEAN CELL VOLUME 100.4 fl (80-96); MEAN PLT VOLUME 9.7 fl (7.5-11.1); MONO % 3.2 % (3.8-10.2); NEUT % 93.4 % (42.8-82.8); PLATELET COUNT 254 K/MM3 (134-434); RBC 3.21 M/mm3 (3.60-5.2); WHITE BLOOD COUNT 22.6 K/mm3 (4.0-10.0)
--- NOTE | 2019-12-14 07:39 | PN ---
Physical Exam: SUBJECTIVE: Patient seen and examined this morning, in no acute distress, speaking in full sentences. OBJECTIVE: Vital Signs Period Temp Pulse Resp BP Sys/Segal Pulse Ox Last 24 Hr 97.8 F-98.5 F 68-136 16-31 82-124/46-70 96-100 GENERAL: The patient is awake, alert, and fully oriented, in no acute distress. HEAD: Normal with no signs of trauma. EYES: PERRL, extraocular movements intact, sclera anicteric, conjunctiva clear. No ptosis. ENT: Ears normal, nares patent, oropharynx clear without exudates, moist mucous membranes. NECK: Trachea midline, full range of motion, supple. LUNGS: Breath sounds improved, mild wheezing only HEART: Regular rate and rhythm, S1, S2 without murmur, rub or gallop. ABDOMEN: Soft, nontender, nondistended, normoactive bowel sounds EXTREMITIES: 2+ pulses, warm, well-perfused, no edema. NEUROLOGICAL: Normal speech, gait not observed. PSYCH: Normal mood, normal affect. SKIN: Warm, dry, normal turgor, no rashes or lesions noted Laboratory Results - last 24 hr 12/12/19 16:15 COVID-19 (ALMAZ) Not detected CBC, BMP 12/14/19 05:40 12/14/19 05:40 Active Medications Generic Name Dose Route Start Last Admin Trade Name Freq PRN Reason Stop Dose Admin Albuterol Sulfate 1 amp 12/13/19 10:29 12/13/19 20:27 Ventolin 0.083% Nebulizer Soln - NEB 1 amp Q4H PRN Administration SHORT OF BREATH/WHEEZING Albuterol/Ipratropium 1 amp 12/13/19 12:57 Duoneb - NEB Q6H PRN ASTHMA Enoxaparin Sodium 60 mg 12/13/19 10:30 12/13/19 21:30 Lovenox - SQ 60 mg BID MESSI Administration Methylprednisolone Sodium Succinate 80 mg 12/13/19 10:30 12/14/19 01:32 Solu-Medrol - IVPUSH 80 mg Q8H-IV MESSI Administration Montelukast Sodium 10 mg 12/13/19 22:00 12/13/19 21:28 Singulair - PO 10 mg HS MESSI Administration Multivit/Folic Acid/Iron 1 tab 12/13/19 10:00 12/13/19 13:43 Vitamins (Sjr) - PO 1 tab DAILY MESSI Administration ASSESSMENT/PLAN: 19 year old female, (2 miscarriages before 20 weeks, 1 ectopic s/p laproscopic removal) at 27.3 weeks gestation with PMH asthma and hyperthyroidism presented to the ED with shortness of breath. Rule out acute on chronic asthma exacerbation vs. PE. Ptn declining CTA 2/2 risk to fetus. NEURO/GENERAL - VSS - Alert and oriented CARDIAC -Tachycardic ~100s 2/2 to AoC Asthma Exacerbation, can not r.o. PE -Possibly 2/2 Ventolin -Possibly 2/2 bronchospasm -POC Echo(12/12): -No R Heart Strain -No Pericardial Effusion -Normal L Ventricular contractility PULM -Acute on Chronic Asthma Exacerbation unable to r/o PE - Hx of multiple hospitalizations for asthma re - c/w Ventolin 1amp q4 - c/w duo-neb 1 amp q6 - c/w Solumedrol 80mg q8 - c/w Singulair 10mg HS - c/w Lovenox 1mg/kg bc can not r/o PE - Wean to room air -Low clinical suspicion of PE -Patient Refused CTA -LE Duplex: No evidence of DVT -Check Peak Flow: Ordered, follow up OBGYN - @ 27.2 weeks -Hx of Miscarriage -[employer] Developer consulted. Recommended vitamins daily. -NST Daily 2/2 viability of fetus and gestational age -Consider outpatient Anti phospholipid antibody workup. GI -No active issues -No PPx ENDOCRINE -Hx of Hyperthyroidism -Not on medication due to potential adverse effect -Monitor BP/HR INFECTIOUS -Covid negative -Rising white count -Urine culture Strep Viridans -Per ID: Amox 500 TID q7 FEN -No standing fluids -Monitor electrolytes and replete -Full diet Ppx -Full Dose Lovenox Dispo: Ptn is ready for transfer to the L&D Floor Visit type - Emergency Visit Emergency Visit: No - New Patient This patient is new to me today: No - Critical Care Critical Care patient: Yes Total Critical Care Time (in minutes): 36 Critical Care Statement: The care of this patient involved high complexity decision making to prevent further life threatening deterioration of the patient's condition and/or to evaluate & treat vital organ system(s) failure or risk of failure. - Discharge Referral Referred to [facility] Med P.C.: No ATTENDING PHYSICIAN STATEMENT I saw and evaluated the patient. I reviewed the resident's note and discussed the case with the resident. I agree with the resident's findings and plan as documented. SUBJECTIVE: OBJECTIVE: ASSESSMENT AND PLAN:
[2019-12-14 08:03] LABS: ALBUMIN 3.1 g/dl (3.4-5.0); BILIRUBIN,TOTAL 0.7 mg/dL (0.2-1); BLOOD UREA NITROGEN 7.8 mg/dL (7-18); CALCIUM 8.9 mg/dL (8.5-10.1); CREATININE 0.5 mg/dL (0.55-1.3); MAGNESIUM 2.1 mg/dL (1.8-2.4); PHOSPHOROUS 4.5 mg/dL (2.5-4.9); POTASSIUM 4.2 mmol/L (3.5-5.1); TOT PROT 6.8 g/dl (6.4-8.2)
--- NOTE | 2019-12-14 08:51 | PN ---
Progress Note (short form) - Note Progress Note: no c/o, breathing easy , no wheeze, , feels baby move, no abdominal pain or vaginal bleeding CBC, BMP 12/14/19 05:40 12/14/19 05:40 Last Vital Signs Temp Pulse Resp BP Pulse Ox 97.8 F 70 19 82/48 L 100 12/14/19 06:00 12/14/19 06:00 12/14/19 06:00 12/14/19 06:00 12/14/19 06:00 uteus 28 weeks, non tender, no contraction felt baby movment felt fhr 140/150 , difficult to get NST done because size of uterus and baby movement impression asthma has improved , no hypoxia leukocytosis secondary to steroid, afebrile plan cont present management heat q shift
[2019-12-14] MEDS ORDERED: PT OWN MED DRAWER 7, Y5N ONE ×3 (09:21→16:48)
[2019-12-14] MEDS: ENOXAPARIN NA (PORCINE) 60 MG/0.6 ML DISP.SYRIN SQ SCH (10:11)
[2019-12-14] MEDS: PRENATAL VITAMINS W/ FOLIC ACID TABLET (FP) PO SCH (10:19)
[2019-12-14 10:38] LABS: PLATELET ESTIMATE NORMAL
--- NOTE | 2019-12-14 12:52 | PN ---
Teaching Attending Note Name of Resident: Christopher Banuelos ATTENDING PHYSICIAN STATEMENT I saw and evaluated the patient. I reviewed the resident's note and discussed the case with the resident. I agree with the resident's findings and plan as documented. SUBJECTIVE: Patient seen and examined in the ICU. Awake and alert on NC O2. Appears much more comfortable today on NC O2. HR normalized. Reports significant clinical improvement. No hemoptysis. No CP. Intake & Output 12/11/19 12/12/19 12/13/19 12/14/19 23:59 23:59 23:59 23:59 Intake Total 450 350 Balance 450 350 Weight 134 lb 134 lb Last Vital Signs Temp Pulse Resp BP Pulse Ox 97.8 F 86 18 94/63 100 12/14/19 06:00 12/14/19 08:00 12/14/19 09:00 12/14/19 08:00 12/14/19 09:00 Active Medications Albuterol Sulfate (Ventolin 0.083% Nebulizer Soln -) 1 amp NEB Q4H PRN PRN Reason: SHORT OF BREATH/WHEEZING Last Admin: 12/13/19 20:27 Dose: 1 amp Documented by: Albuterol/Ipratropium (Duoneb -) 1 amp NEB Q6H PRN PRN Reason: ASTHMA Enoxaparin Sodium (Lovenox -) 60 mg SQ BID [facility] Last Admin: 12/14/19 10:11 Dose: 60 mg Documented by: Methylprednisolone Sodium Succinate (Solu-Medrol -) 80 mg IVPUSH Q8H-IV [facility] Last Admin: 12/14/19 10:13 Dose: 80 mg Documented by: Montelukast Sodium (Singulair -) 10 mg PO HS [facility] Last Admin: 12/13/19 21:28 Dose: 10 mg Documented by: Multivit/Folic Acid/Iron ( Vitamins (Sjr) -) 1 tab PO DAILY [facility] Last Admin: 12/14/19 10:19 Dose: 1 tab Documented by: GENERAL: AAOx3, Comfortable on NC O2, saturation 100% HEENT: NCAT, EOMI, on nasal cannula, moist mucus membranes. LUNGS: Minimal expiratory wheezes. HEART: Tachycardic. Regular rhythm, S1, S2 present. No murmurs. ABDOMEN: abdomen. No visible scars. EXTREMITIES: Warm, well-perfused. No edema. SKIN: Warm and dry Laboratory Results - last 24 hr 12/12/19 12/14/19 12/14/19 16:15 05:40 05:40 WBC 22.6 H RBC 3.21 L Hgb 10.7 Hct 32.2 L MCV 100.4 H MCH 33.4 MCHC 33.3 RDW 13.0 Plt Count 254 MPV 9.7 D Absolute Neuts (auto) 21.1 H Neutrophils % 93.4 H Neutrophils % (Manual) 92.9 H Band Neutrophils % 0.0 Lymphocytes % 3.2 L D Lymphocytes % (Manual) 3.0 L D Monocytes % 3.2 L Monocytes % (Manual) 4 Eosinophils % 0.1 D Eosinophils % (Manual) 0.0 D Basophils % 0.1 Basophils % (Manual) 0.0 Myelocytes % (Man) 0 Promyelocytes % (Man) 0 Blast Cells % (Manual) 0 Nucleated RBC % 0 Metamyelocytes 0 Platelet Estimate Normal PTT (Actin FS) Sodium 138 Potassium 4.2 Chloride 106 Carbon Dioxide 22 Anion Gap 10 BUN 7.8 Creatinine 0.5 L Est GFR (CKD-EPI)AfAm 160.35 Est GFR (CKD-EPI)NonAf 138.35 Random Glucose 100 Calcium 8.9 Phosphorus 4.5 Magnesium 2.1 Total Bilirubin 0.7 AST 14 L ALT 14 Alkaline Phosphatase 84 Total Protein 6.8 Albumin 3.1 L COVID-19 (ALMAZ) Not detected 12/14/19 05:40 WBC RBC Hgb Hct MCV MCH MCHC RDW Plt Count MPV Absolute Neuts (auto) Neutrophils % Neutrophils % (Manual) Band Neutrophils % Lymphocytes % Lymphocytes % (Manual) Monocytes % Monocytes % (Manual) Eosinophils % Eosinophils % (Manual) Basophils % Basophils % (Manual) Myelocytes % (Man) Promyelocytes % (Man) Blast Cells % (Manual) Nucleated RBC % Metamyelocytes Platelet Estimate PTT (Actin FS) 25.3 Sodium Potassium Chloride Carbon Dioxide Anion Gap BUN Creatinine Est GFR (CKD-EPI)AfAm Est GFR (CKD-EPI)NonAf Random Glucose Calcium Phosphorus Magnesium Total Bilirubin AST ALT Alkaline Phosphatase Total Protein Albumin COVID-19 (ALMAZ) ASSESSMENT/PLAN: Resolving AE of Asthma at 27 weeks gestation Hyperthyroidism Low clinical suspicion of PE as we have an alternate diagnosis (AE Asthma) and the patient is rapidly clinically improving as her bronchospam is resolving (?) Antiphospholipid Syndrome (history of miscarriage x 2) Leukocytosis : R/O UTI Risks and benefits of respiratory treatments discussed at length with the patient. At this point the benefit greatly outweighs the risk. The patient has agreed to medical management of her Bronchospasm. Supplemental O2 as needed Measure PEF Can change AC to VTE prophylaxis monitoring per OB. ID evaluation VTE prophylaxis Patient has refused further diagnostic work up for PE OOB to chair Can likely wean steroids to oral tomorrow Can be safely monitored on the floor Dr Humphrey
--- NOTE | 2019-12-14 13:31 | PN ---
Progress Note (short form) - Note Progress Note: TRANSFER NOTE: 19 year old female, (2 miscarriages before 20 weeks, 1 ectopic s/p laproscopic removal) at 27.2 weeks gestation with PMH asthma and hyperthyroidism presented to the ED with shortness of breath. Rule out acute on chronic asthma exacerbation vs. PE. Ptn declining CTA 2/2 risk to fetus. Risk of PE was deemed very low, with no right heart strain, no DVT on Duplex and improvement of symptoms with asthma treatment. Ptn was started on full dose lovenox, steroids and bronchodilators and weaned off oxygen. Currently medically stable for transfer to L&D.
--- NOTE | 2019-12-14 14:55 | PN ---
Progress Note (short form) - Note Progress Note: ID CONSULT DICTATED ASYMPTOMATIC BACTERURIA 27 WK IUP ACUTE EXACERBATION BRONCHIAL ASTHMA ADVISE AMOXICILLIN 500MG PO TID X 7D BLOOD C/S
--- NOTE | 2019-12-14 16:05 | PN ---
Ante-Partal Exam - Subjective Subjective: Patient is doing well, ambulating, tolerating PO, no CP, no SOB, no VB, no LOF and sierra Ctx. Vital Signs: Vital Signs Temperature 98.3 F 12/14/19 14:00 Pulse Rate 105 H 12/14/19 14:00 Respiratory Rate 18 12/14/19 14:00 Blood Pressure 110/59 L 12/14/19 14:00 O2 Sat by Pulse Oximetry (%) 97 12/14/19 14:00 Bleeding: No Headache: No Visual changes: No Right upper quadrant pain: No - Contractions Contractions: No (NST pending) - Exam during Labor Amniotic Membrane Status: Intact (vaginal exam deferred) - Assessment/Plan Assessment/Plan: 19 y/o P0 @ 27.4wks, obstetrically stable, respiratory condition improved after ICU management, respiratory and ID services on board. -NST now, and BID -Transfer to PP floor following NST -follow up respiratory recommendations -Abx as per ID for UTI
[2019-12-14] MEDS: AMOXICILLIN 500 MG CAPSULE (FP) PO SCH ×2 (16:51→21:24)
--- NOTE | 2019-12-14 17:15 | CONS ---
DATE OF CONSULTATION: DATE OF DICTATION: 12/14/2019 INFECTIOUS DISEASE CONSULTATION HISTORY OF PRESENT ILLNESS: The patient is a 19-year-old female who is evaluated for positive urine culture. She was admitted to the hospital on December 12, 2019, with worsening shortness of breath and wheeze. She was diagnosed with acute exacerbation of bronchial asthma. The patient required admission to the intensive care unit. Her course was complicated by elevated white blood cell count of 22,000. A urine culture was obtained, and it showed pyuria with 80 white cells, urine culture positive for strep viridans. Patient denies any urinary tract symptoms. She denies any dysuria or hematuria. No complaints of suprapubic or flank tenderness. PAST MEDICAL HISTORY: Positive for hyperthyroidism, asthma. ALLERGIES: No known allergies. MEDICATION: Include albuterol, Lovenox, methylprednisolone. SOCIAL HISTORY: She resides in the community with her family. Nonsmoker, nondrinker. SYSTEMS REVIEW: Neurologic: No loss of consciousness, seizure activity, focal weakness. Cardiac: Negative for chest pain or palpitations. Respiratory: Negative for cough or sputum production. Positive for acute exacerbation bronchial asthma. Genitourinary: As per HPI. LABORATORY DATA: White count 22.6, hematocrit 32.2, platelets 254, creatinine 0.5. Urinalysis 80 white cells, COVID-19 negative. Urine culture positive for strep viridans. PHYSICAL EXAMINATION: General: On physical examination, the patient is awake and alert, not acutely toxic appearing. Vital signs: Temperature 97.8, blood pressure 94/63, pulse 86 regular, respirations 18 per minute. HEENT: Sclerae anicteric. Cardiovascular: Heart sounds S1, S2. No murmur. Lungs: Clear. Abdomen: Soft, no suprapubic or flank tenderness. Extremities: Negative for edema. IMPRESSION: 1. Asymptomatic bacteruria. 2. 27-week intrauterine . 3. Acute exacerbation bronchial asthma. 4. Leukocytosis likely steroid induced. Will obtain blood cultures, although I think her elevated white blood cell count is secondary to steroids. Advise treatment of asymptomatic bacteruria in this patient with amoxicillin 500 mg p.o. t.i.d. for 7 days. Will obtain blood cultures. Pulmonary followup next week. Thank you for the kind referral. CLARISSA WITT M.D. [id number]
--- NOTE | 2019-12-14 17:40 | PN ---
Progress Note (short form) - Note Progress Note: NST reviewed and AGA. Patient to be transferred to the floor
[2019-12-14] MEDS: MONTELUKAST NA 10 MG TABLET PO SCH (21:25)
[2019-12-15] MEDS: methylPREDNISolone NA SUCC 40 MG/1 ML VIAL IVPUSH SCH ×2 (02:45→10:58)
[2019-12-15] MEDS: AMOXICILLIN 500 MG CAPSULE (FP) PO SCH ×3 (05:46→21:59)
--- NOTE | 2019-12-15 06:51 | PN ---
Ante-Partal Exam - Subjective Subjective: ambulating and doing well, no contractions, no LOF, no VB Vital Signs: Vital Signs Temperature 97.9 F 12/14/19 22:00 Pulse Rate 102 H 12/14/19 22:00 Respiratory Rate 18 12/14/19 22:00 Blood Pressure 97/54 L 12/14/19 22:00 O2 Sat by Pulse Oximetry (%) 93 L 12/14/19 21:00 Bleeding: No Headache: No Visual changes: No Right upper quadrant pain: No - Contractions Contractions: No Intensity: Unaware Monitor Mode: External - Exam during Labor Heart Rate: 135 Variability: Minimal, Moderate Category: I (AGA) Monitor Accelerations: Absent Monitor Decelerations: None Exam: Vaginal (deferred) Amniotic Membrane Status: Intact - Assessment/Plan Assessment/Plan: 19 y/o S/P ICU admission for asthma exacerbation, clinically improved -F/U respiratory -Continue Abx for UTI -NST BID
[2019-12-15] MEDS: PRENATAL VITAMINS W/ FOLIC ACID TABLET (FP) PO SCH (10:58)
[2019-12-15] MEDS: predniSONE 20 MG TABLET (UD) PO SCH (14:02)
[2019-12-15] MEDS: MONTELUKAST NA 10 MG TABLET PO SCH (21:59)
[2019-12-16] MEDS: AMOXICILLIN 500 MG CAPSULE (FP) PO SCH (07:00)
[2019-12-16] MEDS: PRENATAL VITAMINS W/ FOLIC ACID TABLET (FP) PO SCH (09:30)
[2019-12-16] MEDS: predniSONE 20 MG TABLET (UD) PO SCH (09:30)
--- NOTE | 2019-12-16 11:02 | PN ---
Ante-Partal Exam - Subjective Subjective: Ambulating, tolerating PO, no CP, no SOB, no wheezing, no LOF, no VB, no cont ractions Vital Signs: Vital Signs Temperature 97.6 F 12/15/19 22:00 Pulse Rate 77 12/15/19 22:00 Respiratory Rate 18 12/15/19 22:00 Blood Pressure 103/67 12/15/19 22:00 O2 Sat by Pulse Oximetry (%) 96 12/15/19 22:00 Bleeding: No Headache: No Visual changes: No Right upper quadrant pain: No - Contractions Contractions: No Intensity: Unaware Monitor Mode: External - Exam during Labor Heart Rate: 140 (NST being performed) Exam: Vaginal (deferred) - Assessment/Plan Assessment/Plan: 19 y/o P0 @ 27.6wks admitted for asthma exacerbation, clinically improved, no obstetrical issues. Requesting to go home. -F/U with pulmonology for recommendations and outpatient follow up -Anticipate D/C home -NST
--- NOTE | 2019-12-16 11:19 | PN ---
Progress Note (short form) - Note Progress Note: PULMONARY BACK TO BASELINE ETT WITH VENT X1 LAST YEAR AT [facility] FOR BA EXACERBATION VSS/AFEBRILE ANICTERIC CHEST CLEAR NO WHEEZE S1S2 BS+ NO EDEMA ASSESSMENT/PLAN: Resolved AE of Asthma at 27 weeks gestation Hyperthyroidism monitoring per OB. VTE prophylaxis while in hospital Can continue treatment as an outpatient from pulmonary standpoint Will reduce prednisone from 40 mg by 5mg every other day until finished She can continue her outpatient inhalers follow up with PMD/OB for monitoring Rosaline CANTU MD
--- NOTE | 2019-12-16 12:26 | DS ---
Physical Examination Vital Signs: Vital Signs Temperature 97.6 F 12/15/19 22:00 Pulse Rate 77 12/15/19 22:00 Respiratory Rate 18 12/15/19 22:00 Blood Pressure 103/67 12/15/19 22:00 O2 Sat by Pulse Oximetry (%) 96 12/15/19 22:00 Constitutional: Yes: Well Nourished HENT: Yes: Atraumatic Cardiovascular: Yes: Regular Rate and Rhythm Respiratory: Yes: Regular Gastrointestinal: Yes: Soft ...Rectal Exam: Yes: Other Renal/: Yes: Other Breast(s): Yes: Other Musculoskeletal: Yes: Other Extremities: Yes: WNL Edema: LLE: Trace, RLE: Trace Peripheral Pulses WNL: Yes Integumentary: Yes: WNL Neurological: Yes: Alert, Oriented ...Motor Strength: WNL Psychiatric: Yes: Alert, Oriented Labs: CBC, BMP 12/14/19 05:40 12/14/19 05:40 Discharge Summary Problems reviewed: Yes Reason For Visit: ASTHMA WITH EXACERBATION HYPOXIA Current Active Problems Asthma exacerbation (Acute) Hypoxia (Acute) (Acute) Procedures: Principal: Admission to ICU for asthma exacerbation Hospital Course: Patient was admitted to ICU on 12/13/19 due to asthma exacerbation. Patient declined Spiral CT on admission. Patient was evaluated by pulmonology and ID services. Patient was transferred to the floor on 12/14/19 following clinical improvement. Plan of Treatment: Follow up pulmonology recommendations. Oral steroid taper and follow up within a week for OB assessment and pulmonology referral. Condition: Good - Instructions Diet, Activity, Other Instructions: return to regular diet as tolerated, follow up within a week at Ob office for pulmonology referral, Call MD with any questions or concerns. Oral steroid hipolito starting at 35mg daily and decreasing by 5mg every 2 days. Referrals: Kimberly Sifuentes MD [Staff Physician] - Tal King MD [Primary Care Provider] - Disposition: HOME - Home Medications Comprehensive Discharge Medication List: Ambulatory Orders Albuterol Sulfate Inhaler - [Ventolin Hfa Inhaler -] 1 - 2 inh PO Q4H 12/12/19 Budesonide/Formeterol Fumarate [SYMBICORT 80/4.5mcg -] 1 inh PO BID 12/12/19 Montelukast Na [Singulair -] 10 mg PO HS 12/12/19 Pnv No.95/Ferrous Fum/Folic AC [ Vitamin Tablet] 1 tab PO DAILY 12/12/19
[2019-12-16 12:32] VITALS: BP 105/66; PULSE 80; TEMP 98.6
--- NOTE | 2019-12-16 12:54 | PN ---
Progress Note (short form) - Note Progress Note: Pulmonology note appreciated and unable to contact attending for questions and specifications despite calling his answering service
[2019-12-19 18:08] LABS: D002 D FARINAE MITE <0.10
[2019-12-19 18:09] LABS: D001 D PTERONYSSINUS <0.10; E005 DOG HAIR/DANDER <0.10; F001 EGG WHITE <0.10
[2019-12-19 18:10] LABS: F018 BRAZIL NUT < 0.10; F201 PECAN NUT < 0.10
[2019-12-19 18:11] LABS: M006-ALTERNARIA <0.10
== END 2019-12-16 13:10 | disposition home or self-care (01) | DRG 566 ==
LOC: JER 13:58 → JERBED 18:24 → JICU 21:37 → JLDR 12-14 17:54 → J3W 12-14 18:08
PROVIDERS: ADMIT Obstetrics & Gynecology; ATTEND Obstetrics & Gynecology
DX: O99.512 Diseases of the respiratory system complicating pregnancy, second trimester (principal); J45.901 Unspecified asthma with (acute) exacerbation; O26.892 Other specified pregnancy related conditions, second trimester; E05.90 Thyrotoxicosis, unspecified without thyrotoxic crisis or storm; Z3A.27 27 weeks gestation of pregnancy; O23.42 Unspecified infection of urinary tract in pregnancy, second trimester; D72.829 Elevated white blood cell count, unspecified; R00.0 Tachycardia, unspecified
CPT/HCPCS: 36415; 36600; 71045-TC-FY; 76815; 80053; 81003; 82550; 82803; 83735; 83880; 84100; 84436; 84443; 84484; 85025; 85379; 85610; 85730; 86003; 87040; 87086; 93005; 93010; 93308; 93970; 93970-TC; 94640; 99285-25; U0003

== ENCOUNTER 2020-05-11 14:20 | Inpatient (IN) | payer OTHER ==
[2020-05-11] MEDS ORDERED: DEXAMETHASONE SOD PHOSPHATE 10 MG/1 ML VIAL IVPUSH ONE (14:50)
[2020-05-11] MEDS ORDERED: MAGNESIUM SULF 50% (8.12 MEQ/2 ML-1 GM VIAL) IVPB ONE (14:50)
[2020-05-11 15:10] VITALS: BMI 21.7
[2020-05-11] MEDS ORDERED: DEXAMETHASONE SOD PHOSPHATE 10 MG/1 ML VIAL ONE (15:26)
[2020-05-11] MEDS ORDERED: MAGNESIUM 1GM/D5W - 1 GM/100 ML IVPB IVPB ONE (15:27)
[2020-05-11] MEDS ORDERED: ALBUTEROL SO4 2.5/IPRATROPIUM 0.5 INH SOL 3 ML VIAL.NEB. NEB ONE (15:27)
[2020-05-11] MEDS: ALBUTEROL SO4 2.5/IPRATROPIUM 0.5 INH SOL 3 ML VIAL.NEB. NEB SCH ×3 (15:35→15:58)
[2020-05-11] MEDS: ALBUTEROL SO4 0.083% IH SOL 2.5 MG/3 ML VIAL.NEB. NEB SCH ×2 (17:17→17:23)
[2020-05-11] MEDS ORDERED: ALBUTEROL SO4 0.083% IH SOL 2.5 MG/3 ML VIAL.NEB. NEB ONE ×2 (17:19→22:30)
[2020-05-11 18:30] LABS: VENOUS BASE EXCESS -2.4 mmol/L (-2-2); VENOUS O2 SATURATION 67.9 % (70-80); VENOUS PCO2 36.8 mmHg (38-52); VENOUS PH 7.393 (7.310-7.410)
[2020-05-11 18:33] LABS: BASO % 0.4 % (0-2.0); EOS % 1.2 % (0-4.5); HEMOGLOBIN 12.3 GM/dL (10.7-15.3); LYMPH % 3.7 % (8-40); MCHC 32.5 g/dl (32.0-36.0); MEAN CELL VOLUME 92.4 fl (80-96); MEAN PLT VOLUME 9.3 fl (7.5-11.1); MONO % 2.6 % (3.8-10.2); NEUT % 92.1 % (42.8-82.8); PLATELET COUNT 305 K/MM3 (134-434); RBC 4.11 M/mm3 (3.60-5.2); RDW 14.4 % (11.6-15.6); WHITE BLOOD COUNT 13.8 K/mm3 (4.0-10.0)
[2020-05-11 18:36] LABS: INR 1.08 (0.83-1.09)
[2020-05-11 18:38] LABS: ACTIVATED PTT 30.7 SECONDS (25.2-36.5)
[2020-05-11 18:42] LABS: CHLORIDE 110 mmol/L (98-107); POTASSIUM 3.3 mmol/L (3.5-5.1); SODIUM 138 mmol/L (136-145)
[2020-05-11 18:44] LABS: ALBUMIN 3.6 g/dl (3.4-5.0); ANION GAP 7 MMOL/L (8-16); CALCIUM 8.6 mg/dL (8.5-10.1); CO2 22 mmol/L (21-32)
[2020-05-11 18:45] LABS: BLOOD UREA NITROGEN 11.2 mg/dL (7-18); GLUCOSE,RANDOM 112 mg/dL (74-106)
[2020-05-11 18:47] LABS: BILIRUBIN,DIRECT 0.2 mg/dL (0.0-0.2); CREATININE 0.7 mg/dL (0.55-1.3); SGOT/AST 12 U/L (15-37); SGPT/ALT 17 U/L (13-61)
[2020-05-11 18:49] LABS: BILIRUBIN,TOTAL 0.4 mg/dL (0.2-1); TOT PROT 7.5 g/dl (6.4-8.2)
[2020-05-11 18:50] LABS: ALK PHOS 102 U/L (45-117)
[2020-05-11 18:52] LABS: LDH 135 U/L (84-246)
[2020-05-11 20:36] LABS: ANISOCYTOSIS 0; MACROCYTOSIS 0; PLATELET ESTIMATE NORMAL
[2020-05-11] MEDS: ALBUTEROL SO4 2.5/IPRATROPIUM 0.5 INH SOL 3 ML VIAL.NEB. NEB PRN (22:10)
[2020-05-11] MEDS ORDERED: AZITHROMYCIN IVPB 500 MG/250 ML BAG IVPB ONE (22:53)
[2020-05-11] MEDS ORDERED: ALBUTEROL SO4 0.042% IH SOL 1.25 MG/3 ML VIAL.NEB NEB ONE (23:12)
[2020-05-12] MEDS: methylPREDNISolone NA SUCC 40 MG/1 ML VIAL IVPUSH SCH ×3 (01:20→17:45)
[2020-05-12] MEDS: ALBUTEROL SO4 2.5/IPRATROPIUM 0.5 INH SOL 3 ML VIAL.NEB. NEB PRN ×2 (05:58→20:03)
[2020-05-12 10:20] LABS: BASO % 0.1 % (0-2.0); HEMATOCRIT 36.6 % (32.4-45.2); LYMPH % 3.2 % (8-40); MCH 30.2 pg (25.7-33.7); MCHC 32.7 g/dl (32.0-36.0); MEAN CELL VOLUME 92.2 fl (80-96); MEAN PLT VOLUME 9.5 fl (7.5-11.1); MONO % 3.8 % (3.8-10.2); NEUT % 92.9 % (42.8-82.8); PLATELET COUNT 322 K/MM3 (134-434); RBC 3.97 M/mm3 (3.60-5.2); RDW 14.5 % (11.6-15.6); WHITE BLOOD COUNT 14.6 K/mm3 (4.0-10.0)
[2020-05-12 10:39] LABS: ALBUMIN 3.7 g/dl (3.4-5.0); BLOOD UREA NITROGEN 11.6 mg/dL (7-18); CALCIUM 9.3 mg/dL (8.5-10.1)
[2020-05-12] MEDS ORDERED: cefTRIAXone SODIUM 1 GM VIAL ONE (10:41)
[2020-05-12 10:42] LABS: CREATININE 0.6 mg/dL (0.55-1.3)
[2020-05-12] MEDS ORDERED: DEXTROSE 5%-WATER - 50 ML IVPB ONE (10:42)
[2020-05-12 10:44] LABS: BILIRUBIN,TOTAL 0.4 mg/dL (0.2-1); TOT PROT 7.9 g/dl (6.4-8.2)
[2020-05-12] MEDS: CEFTRIAXONE 1 GM in DEXTROSE 5%-WATER - 50 ML IVPB SCH (11:01)
[2020-05-12] MEDS: ENOXAPARIN NA (PORCINE) 40 MG/0.4 ML DISP.SYRIN SQ SCH (11:08)
[2020-05-12] MEDS ORDERED: ACETAMINOPHEN 325 MG TABLET (FP) PO PRN (13:11)
[2020-05-12 15:56] LABS: ANISOCYTOSIS 0; MACROCYTOSIS 0; PLATELET ESTIMATE NORMAL
[2020-05-13] MEDS: methylPREDNISolone NA SUCC 40 MG/1 ML VIAL IVPUSH SCH (02:05)
[2020-05-13] MEDS ORDERED: methylPREDNISolone NA SUCC 40 MG/1 ML VIAL IVPUSH SCH (10:00)
[2020-05-13] MEDS ORDERED: cefTRIAXone SODIUM 1 GM VIAL ONE (10:01)
[2020-05-13] MEDS ORDERED: DEXTROSE 5%-WATER - 50 ML IVPB ONE (10:02)
[2020-05-13] MEDS: CEFTRIAXONE 1 GM in DEXTROSE 5%-WATER - 50 ML IVPB SCH (10:23)
[2020-05-13] MEDS: ENOXAPARIN NA (PORCINE) 40 MG/0.4 ML DISP.SYRIN SQ SCH (10:31)
[2020-05-13] MEDS ORDERED: ALBUTEROL SO4 HFA INHALER IH PRN (10:41)
[2020-05-13] MEDS ORDERED: ALBUTEROL SO4 0.083% IH SOL 2.5 MG/3 ML VIAL.NEB. NEB SCH (12:00)
[2020-05-13 14:53] VITALS: BP 114/65; PULSE 96; TEMP 97.8
== END 2020-05-13 16:45 | disposition home or self-care (01) | DRG 141 ==
LOC: JER 14:20 → JERBED 18:17 → J5S 20:52
PROVIDERS: ADMIT Internal Medicine; ATTEND Internal Medicine
DX: J45.901 Unspecified asthma with (acute) exacerbation (principal); E05.90 Thyrotoxicosis, unspecified without thyrotoxic crisis or storm; D64.9 Anemia, unspecified; J96.01 Acute respiratory failure with hypoxia
CPT/HCPCS: 36415; 71045-TC-FY; 80053; 82248; 82550; 82728; 82803; 83615; 84484; 85025; 85379; 85610; 85730; 86140; 93005; 93010; 94640; 99285-25; C9803; J1100; U0003

== ENCOUNTER 2020-07-28 20:07 | Inpatient (IN) | payer OTHER ==
[2020-07-28] MEDS ORDERED: SODIUM CHLORIDE 1,000 ML IV STA (21:06)
[2020-07-28 22:31] LABS: BASO % 0.4 % (0-2.0); EOS % 4.1 % (0-4.5); HEMATOCRIT 39.6 % (32.4-45.2); HEMOGLOBIN 13.4 GM/dL (10.7-15.3); LYMPH % 20.4 % (8-40); MCHC 33.7 g/dl (32.0-36.0); MEAN CELL VOLUME 91.8 fl (80-96); MEAN PLT VOLUME 9.4 fl (7.5-11.1); MONO % 15.8 % (3.8-10.2); NEUT % 59.3 % (42.8-82.8); PLATELET COUNT 360 K/MM3 (134-434); RBC 4.32 M/mm3 (3.60-5.2); RDW 12.2 % (11.6-15.6); WHITE BLOOD COUNT 10.7 K/mm3 (4.0-10.0)
[2020-07-28 22:53] LABS: CHLORIDE 103 mmol/L (98-107); POTASSIUM 4.3 mmol/L (3.5-5.1); SODIUM 136 mmol/L (136-145)
[2020-07-28 22:55] LABS: CALCIUM 9.7 mg/dL (8.5-10.1)
[2020-07-28 22:56] LABS: ALBUMIN 3.4 g/dl (3.4-5.0); ANION GAP 8 MMOL/L (8-16); BLOOD UREA NITROGEN 11.2 mg/dL (7-18); CO2 25 mmol/L (21-32); GLUCOSE,RANDOM 79 mg/dL (74-106)
[2020-07-28 22:59] LABS: CREATININE 0.4 mg/dL (0.55-1.3); SGOT/AST 20 U/L (15-37); SGPT/ALT 30 U/L (13-61)
[2020-07-28 23:00] LABS: BILIRUBIN,TOTAL 0.4 mg/dL (0.2-1); TOT PROT 7.6 g/dl (6.4-8.2)
[2020-07-28 23:02] LABS: ALK PHOS 129 U/L (45-117)
[2020-07-29] MEDS ORDERED: METHIMAZOLE 10 MG TABLET (FP) PO ONE (00:31)
[2020-07-29] MEDS ORDERED: METHIMAZOLE 10 MG TABLET (FP) PO SCH (01:45)
[2020-07-29 07:53] LABS: BASO % 0.6 % (0-2.0); EOS % 7.1 % (0-4.5); HEMATOCRIT 35.5 % (32.4-45.2); LYMPH % 30.1 % (8-40); MCH 30.9 pg (25.7-33.7); MCHC 33.9 g/dl (32.0-36.0); MEAN PLT VOLUME 9.6 fl (7.5-11.1); MONO % 16.3 % (3.8-10.2); NEUT % 45.9 % (42.8-82.8); PLATELET COUNT 328 K/MM3 (134-434); RDW 12.3 % (11.6-15.6); WHITE BLOOD COUNT 7.7 K/mm3 (4.0-10.0)
[2020-07-29 08:05] LABS: POTASSIUM 4.5 mmol/L (3.5-5.1)
[2020-07-29 08:17] LABS: BLOOD UREA NITROGEN 15.1 mg/dL (7-18)
[2020-07-29 08:20] LABS: CREATININE 0.4 mg/dL (0.55-1.3)
[2020-07-29 08:22] LABS: BILIRUBIN,TOTAL 0.6 mg/dL (0.2-1); TOT PROT 6.8 g/dl (6.4-8.2)
[2020-07-29] MEDS ORDERED: ENOXAPARIN NA (PORCINE) 40 MG/0.4 ML DISP.SYRIN SQ ONE (08:44)
[2020-07-29] MEDS: METHIMAZOLE 10 MG TABLET (FP) PO SCH ×2 (09:15→21:10)
[2020-07-29] MEDS: ENOXAPARIN NA (PORCINE) 40 MG/0.4 ML DISP.SYRIN SQ SCH (09:16)
[2020-07-29 23:14] LABS: EPI CELLS 12 /uL (0-25.1); HYALINE CASTS 3 /uL (0-3.1); PH,URINE 5.5 (5.0-8.0); URINE APPEARANCE CLEAR; URINE BACTERIA 514 /uL (0-1359); URINE BILIRUBIN NEGATIVE (NEGATIVE); URINE COLOR YELLOW; URINE GLUCOSE (UA) NEGATIVE (NEGATIVE); URINE KETONE 1+ (NEGATIVE); URINE LEUK ESTERASE 1+ (NEGATIVE); URINE NITRITE NEGATIVE (NEGATIVE); URINE PROTEIN NEGATIVE (NEGATIVE); URINE RBC 5 /uL (0-23.9); URINE UROBILINOGEN 0.2 mg/dL (0.2-1.0); URINE WBC 127 /uL (0-25.8)
[2020-07-29 23:15] LABS: HCG,QUALITATIVE URINE Negative
[2020-07-30 01:40] VITALS: BMI 19.8
[2020-07-30] MEDS: METHIMAZOLE 10 MG TABLET (FP) PO SCH ×2 (05:29→14:43)
[2020-07-30] MEDS: ENOXAPARIN NA (PORCINE) 40 MG/0.4 ML DISP.SYRIN SQ SCH (11:25)
[2020-07-30 14:36] VITALS: BP 117/59; PULSE 111; TEMP 98.2
== END 2020-07-30 16:08 | disposition home or self-care (01) | DRG 424 ==
LOC: JER 20:07 → JERBED 07-29 01:02 → J4S 07-30 01:04
PROVIDERS: ADMIT Internal Medicine; ATTEND Internal Medicine
DX: E05.80 Other thyrotoxicosis without thyrotoxic crisis or storm (principal); R00.2 Palpitations; J45.20 Mild intermittent asthma, uncomplicated; R19.7 Diarrhea, unspecified; Z91.14 Patient's other noncompliance with medication regimen; R00.0 Tachycardia, unspecified; U07.1 COVID-19
CPT/HCPCS: 36415; 71045-TC-FY; 80053; 81003; 84439; 84443; 84481; 84484; 84703; 85025; 85379; 87804; 93005; 93010; 99285-25; C9803; U0003; U0005

== ENCOUNTER 2020-08-08 16:50 | Inpatient (IN) | payer OTHER ==
[2020-08-08] MEDS ORDERED: ALBUTEROL SO4 2.5/IPRATROPIUM 0.5 INH SOL 3 ML VIAL.NEB. NEB ONE ×2 (17:05→20:19)
[2020-08-08] MEDS: ALBUTEROL SO4 0.083% IH SOL 2.5 MG/3 ML VIAL.NEB. NEB SCH ×4 (17:10→17:50)
[2020-08-08] MEDS ORDERED: EPINEPHrine/PF 1 MG/1 ML (1:1,000) AMPULE ONE ×2 (17:17→17:25)
[2020-08-08] MEDS ORDERED: MAGNESIUM SULFATE IN WATER 2 GM/50 ML IVPB IVPB ONE (17:25)
[2020-08-08] MEDS ORDERED: DEXAMETHASONE SOD PHOSPHATE 10 MG/1 ML VIAL ONE (17:25)
[2020-08-08 17:38] LABS: ARTERIAL BLD GAS O2 SATURATION 88.2 mmHg (95-98); ARTERIAL BLOOD GAS BASE EXCESS -10.2 mmol/L (-2-2); ARTERIAL BLOOD GAS PO2 69.9 mmHg (80-100)
[2020-08-08] MEDS ORDERED: KETAMINE HCL 200 MG/20 ML VIAL ONE (17:43)
[2020-08-08] MEDS ORDERED: SUCCINYLCHOLINE CHLORIDE 200 MG/10 ML SYRINGE ONE (17:43)
[2020-08-08] MEDS ORDERED: ALBUTEROL SO4 0.083% IH SOL 2.5 MG/3 ML VIAL.NEB. NEB ONE (17:47)
[2020-08-08 18:01] LABS: ARTERIAL BLOOD GAS pH 7.142 (7.350-7.450)
[2020-08-08] MEDS ORDERED: EPINEPHrine 1:1,000 0.3 MG/0.3 ML SYR IM ONE (18:01)
[2020-08-08 18:24] LABS: ARTERIAL BLD GAS O2 SATURATION 98.6 mmHg (95-98); ARTERIAL BLOOD GAS BASE EXCESS -8.4 mmol/L (-2-2); ARTERIAL BLOOD GAS PO2 150.4 mmHg (80-100); ARTERIAL BLOOD GAS pH 7.248 (7.350-7.450)
[2020-08-08 18:27] LABS: VENT RATE 16
[2020-08-08 18:43] LABS: BASO % 0.4 % (0-2.0); EOS % 5.6 % (0-4.5); HEMOGLOBIN 12.4 GM/dL (10.7-15.3); LYMPH % 10.4 % (8-40); MCHC 32.6 g/dl (32.0-36.0); MEAN CELL VOLUME 92.3 fl (80-96); MEAN PLT VOLUME 9.4 fl (7.5-11.1); MONO % 6.2 % (3.8-10.2); NEUT % 77.4 % (42.8-82.8); PLATELET COUNT 510 K/MM3 (134-434); RBC 4.12 M/mm3 (3.60-5.2); RDW 12.7 % (11.6-15.6); WHITE BLOOD COUNT 15.9 K/mm3 (4.0-10.0)
[2020-08-08 19:00] LABS: CHLORIDE 109 mmol/L (98-107); SODIUM 138 mmol/L (136-145)
[2020-08-08 19:02] LABS: GLUCOSE,RANDOM 120 mg/dL (74-106)
[2020-08-08 19:03] LABS: ALBUMIN 3.3 g/dl (3.4-5.0); ANION GAP 8 MMOL/L (8-16); CALCIUM 9.1 mg/dL (8.5-10.1); CO2 21 mmol/L (21-32); MAGNESIUM 2.6 mg/dL (1.8-2.4)
[2020-08-08 19:04] LABS: BLOOD UREA NITROGEN 8.6 mg/dL (7-18)
[2020-08-08 19:07] LABS: CREATININE 0.4 mg/dL (0.55-1.3); SGOT/AST 24 U/L (15-37); SGPT/ALT 28 U/L (13-61)
[2020-08-08 19:08] LABS: BILIRUBIN,TOTAL 0.5 mg/dL (0.2-1); TOT PROT 7.2 g/dl (6.4-8.2)
[2020-08-08 19:09] LABS: ALK PHOS 128 U/L (45-117)
[2020-08-08 19:12] LABS: N-TERMINAL BNP 378.4 pg/ml (5-125)
[2020-08-08] MEDS ORDERED: AZITHROMYCIN IVPB 500 MG in DEXTROSE 5%-WATER - 250 ML IVPB ONE (20:15)
[2020-08-08] MEDS ORDERED: ALBUTEROL SO4 HFA INHALER IH PRN (20:15)
[2020-08-08] MEDS ORDERED: methylPREDNISolone NA SUCC 40 MG/1 ML VIAL IVPUSH SCH (20:30)
[2020-08-08] MEDS ORDERED: PT OWN MED DRAWER 7, Y5N ONE (20:54)
[2020-08-08] MEDS ORDERED: AZITHROMYCIN IVPB 500 MG/250 ML BAG IVPB ONE (21:00)
[2020-08-08] MEDS: MONTELUKAST NA 10 MG TABLET PO SCH (21:06)
[2020-08-08] MEDS: METHIMAZOLE 10 MG TABLET (FP) PO SCH (21:07)
[2020-08-08 21:15] LABS: ARTERIAL BLD GAS O2 SATURATION 97.2 mmHg (95-98); ARTERIAL BLOOD GAS BASE EXCESS -4.8 mmol/L (-2-2); ARTERIAL BLOOD GAS PO2 98.9 mmHg (80-100); ARTERIAL BLOOD GAS pH 7.337 (7.350-7.450)
[2020-08-08 21:16] LABS: VENT MODE PSV; VENT RATE 29
[2020-08-08] MEDS: MUPIROCIN 2% TOPICAL OINTMENT FOR DECOLONIZATION NS SCH (21:57)
[2020-08-08] MEDS: CHLORHEXIDINE GLUCONATE 4% CLEANSER FOR DECOLONIZATION TP SCH (21:57)
[2020-08-08] MEDS ORDERED: METHIMAZOLE 10 MG TABLET (FP) PO SCH (22:00)
[2020-08-08] MEDS ORDERED: RAPID SEQUENCE INTUBATION KIT NR ONE (22:16)
[2020-08-08] MEDS ORDERED: MAGNESIUM 1GM/D5W 100ML - 100 ML IVPB IVPB ONE (22:16)
[2020-08-08] MEDS ORDERED: MAGNESIUM SULF 50% (8.12 MEQ/2 ML-1 GM VIAL) IVPB ONE (22:39)
[2020-08-08] MEDS ORDERED: ALBUTEROL SO4 2.5/IPRATROPIUM 0.5 INH SOL 3 ML VIAL.NEB. NEB PRN (23:00)
[2020-08-09] MEDS ORDERED: ALBUTEROL SO4 2.5/IPRATROPIUM 0.5 INH SOL 3 ML VIAL.NEB. NEB ONE ×2 (01:45→06:20)
[2020-08-09] MEDS: methylPREDNISolone NA SUCC 40 MG/1 ML VIAL IVPUSH SCH ×4 (03:12→21:49)
[2020-08-09] MEDS: METHIMAZOLE 10 MG TABLET (FP) PO SCH ×3 (05:40→21:50)
[2020-08-09 06:39] LABS: ARTERIAL BLD GAS O2 SATURATION 96.3 mmHg (95-98); ARTERIAL BLOOD GAS BASE EXCESS -4.8 mmol/L (-2-2); ARTERIAL BLOOD GAS PO2 86.3 mmHg (80-100); ARTERIAL BLOOD GAS pH 7.365 (7.350-7.450)
[2020-08-09 06:42] LABS: ALLENS TEST POSITIVE
[2020-08-09 06:43] LABS: VENT MODE PSV; VENT RATE 15
[2020-08-09 06:50] LABS: HEMATOCRIT 38.7 % (32.4-45.2); HEMOGLOBIN 13.2 GM/dL (10.7-15.3); MCH 31.1 pg (25.7-33.7); MCHC 34.1 g/dl (32.0-36.0); MEAN CELL VOLUME 91.3 fl (80-96); MEAN PLT VOLUME 9.2 fl (7.5-11.1); PLATELET COUNT 425 K/MM3 (134-434); RBC 4.24 M/mm3 (3.60-5.2); RDW 12.5 % (11.6-15.6); WHITE BLOOD COUNT 11.1 K/mm3 (4.0-10.0)
[2020-08-09 07:09] LABS: BLOOD UREA NITROGEN 10.8 mg/dL (7-18); CALCIUM 9.8 mg/dL (8.5-10.1)
[2020-08-09 07:10] LABS: ALBUMIN 3.4 g/dl (3.4-5.0); MAGNESIUM 2.2 mg/dL (1.8-2.4)
[2020-08-09 07:13] LABS: CREATININE 0.4 mg/dL (0.55-1.3)
[2020-08-09 07:14] LABS: BILIRUBIN,TOTAL 0.6 mg/dL (0.2-1)
[2020-08-09] MEDS: ALBUTEROL SO4 2.5/IPRATROPIUM 0.5 INH SOL 3 ML VIAL.NEB. NEB SCH ×4 (07:30→19:58)
[2020-08-09] MEDS ORDERED: DEXTROSE 5%-WATER 100 ML IVPB ONE (08:08)
[2020-08-09] MEDS: ENOXAPARIN NA (PORCINE) 40 MG/0.4 ML DISP.SYRIN SQ SCH ×2 (09:01→09:04)
[2020-08-09] MEDS: AZITHROMYCIN IVPB 500 MG/250 ML BAG IVPB SCH (09:02)
[2020-08-09] MEDS: MUPIROCIN 2% TOPICAL OINTMENT FOR DECOLONIZATION NS SCH ×2 (09:04→21:50)
[2020-08-09] MEDS: CEFTRIAXONE 2 GM in DEXTROSE 5%-WATER 2 GM/100 ML BAG IVPB SCH (10:08)
[2020-08-09] MEDS ORDERED: PT OWN MED DRAWER 7, Y5N ONE ×2 (14:16→21:41)
[2020-08-09] MEDS: MONTELUKAST NA 10 MG TABLET PO SCH (21:50)
[2020-08-09] MEDS: CHLORHEXIDINE GLUCONATE 4% CLEANSER FOR DECOLONIZATION TP SCH (21:50)
[2020-08-10] MEDS: ALBUTEROL SO4 2.5/IPRATROPIUM 0.5 INH SOL 3 ML VIAL.NEB. NEB SCH ×6 (00:37→20:32)
[2020-08-10] MEDS: methylPREDNISolone NA SUCC 40 MG/1 ML VIAL IVPUSH SCH ×4 (03:34→21:16)
[2020-08-10] MEDS ORDERED: PT OWN MED DRAWER 7, Y5N ONE ×3 (05:16→20:46)
[2020-08-10] MEDS: METHIMAZOLE 10 MG TABLET (FP) PO SCH ×3 (05:17→21:16)
[2020-08-10] MEDS ORDERED: DEXTROSE 5%-WATER 100 ML IVPB ONE (08:25)
[2020-08-10] MEDS: CEFTRIAXONE 2 GM in DEXTROSE 5%-WATER 2 GM/100 ML BAG IVPB SCH (09:30)
[2020-08-10] MEDS: ENOXAPARIN NA (PORCINE) 40 MG/0.4 ML DISP.SYRIN SQ SCH (09:30)
[2020-08-10] MEDS: MUPIROCIN 2% TOPICAL OINTMENT FOR DECOLONIZATION NS SCH ×2 (09:30→21:16)
[2020-08-10] MEDS: AZITHROMYCIN IVPB 500 MG/250 ML BAG IVPB SCH (10:19)
[2020-08-10 15:14] LABS: CALCIUM 9.6 mg/dL (8.5-10.1)
[2020-08-10 15:15] LABS: ALBUMIN 3.3 g/dl (3.4-5.0); BLOOD UREA NITROGEN 16.1 mg/dL (7-18)
[2020-08-10 15:18] LABS: CREATININE 0.5 mg/dL (0.55-1.3)
[2020-08-10 15:20] LABS: BILIRUBIN,TOTAL 0.4 mg/dL (0.2-1); TOT PROT 7.7 g/dl (6.4-8.2)
[2020-08-10 20:29] VITALS: BMI 22.7
[2020-08-10] MEDS: MONTELUKAST NA 10 MG TABLET PO SCH (21:16)
[2020-08-10] MEDS: CHLORHEXIDINE GLUCONATE 4% CLEANSER FOR DECOLONIZATION TP SCH (21:16)
[2020-08-11] MEDS: ALBUTEROL SO4 2.5/IPRATROPIUM 0.5 INH SOL 3 ML VIAL.NEB. NEB SCH ×6 (00:05→20:39)
[2020-08-11] MEDS: methylPREDNISolone NA SUCC 40 MG/1 ML VIAL IVPUSH SCH ×3 (04:58→22:02)
[2020-08-11] MEDS: METHIMAZOLE 10 MG TABLET (FP) PO SCH ×3 (05:56→22:01)
[2020-08-11] MEDS ORDERED: DEXTROSE 5%-WATER 100 ML IVPB ONE ×2 (09:16→09:17)
[2020-08-11] MEDS: CEFTRIAXONE 2 GM in DEXTROSE 5%-WATER 2 GM/100 ML BAG IVPB SCH (09:45)
[2020-08-11] MEDS: MUPIROCIN 2% TOPICAL OINTMENT FOR DECOLONIZATION NS SCH (09:45)
[2020-08-11] MEDS: ENOXAPARIN NA (PORCINE) 40 MG/0.4 ML DISP.SYRIN SQ SCH (09:51)
[2020-08-11] MEDS: AZITHROMYCIN IVPB 500 MG/250 ML BAG IVPB SCH (11:00)
[2020-08-11] MEDS ORDERED: PT OWN MED DRAWER 7, Y5N ONE (14:24)
[2020-08-11] MEDS ORDERED: ALBUTEROL SO4 HFA INHALER IH PRN (19:03)
[2020-08-11] MEDS ORDERED: MUPIROCIN 2% TOPICAL OINTMENT FOR DECOLONIZATION NS SCH (22:00)
[2020-08-11] MEDS ORDERED: methylPREDNISolone NA SUCC 40 MG/1 ML VIAL IVPUSH SCH (22:00)
[2020-08-11] MEDS ORDERED: MONTELUKAST NA 10 MG TABLET PO SCH (22:00)
[2020-08-11] MEDS ORDERED: CHLORHEXIDINE GLUCONATE 4% CLEANSER FOR DECOLONIZATION TP SCH (22:00)
[2020-08-12] MEDS: ALBUTEROL SO4 2.5/IPRATROPIUM 0.5 INH SOL 3 ML VIAL.NEB. NEB SCH ×2 (01:30→05:15)
[2020-08-12] MEDS: METHIMAZOLE 10 MG TABLET (FP) PO SCH ×2 (05:37→13:52)
[2020-08-12 08:28] LABS: HEMATOCRIT 41.5 % (32.4-45.2); HEMOGLOBIN 14.2 GM/dL (10.7-15.3); MCH 31.5 pg (25.7-33.7); MCHC 34.3 g/dl (32.0-36.0); MEAN CELL VOLUME 91.7 fl (80-96); MEAN PLT VOLUME 9.3 fl (7.5-11.1); PLATELET COUNT 418 K/MM3 (134-434); RBC 4.52 M/mm3 (3.60-5.2); RDW 12.5 % (11.6-15.6); WHITE BLOOD COUNT 10.8 K/mm3 (4.0-10.0)
[2020-08-12 08:34] LABS: ALBUMIN 3.3 g/dl (3.4-5.0); BLOOD UREA NITROGEN 15.8 mg/dL (7-18); CALCIUM 9.4 mg/dL (8.5-10.1)
[2020-08-12 08:38] LABS: CREATININE 0.4 mg/dL (0.55-1.3)
[2020-08-12 08:39] LABS: BILIRUBIN,TOTAL 1.1 mg/dL (0.2-1); TOT PROT 7.5 g/dl (6.4-8.2)
[2020-08-12] MEDS ORDERED: AZITHROMYCIN IVPB 500 MG/250 ML BAG IVPB SCH (10:00)
[2020-08-12] MEDS ORDERED: CEFTRIAXONE 2 GM in DEXTROSE 5%-WATER 2 GM/100 ML BAG IVPB SCH (10:00)
[2020-08-12] MEDS ORDERED: DEXTROSE 5%-WATER 100 ML IVPB ONE (10:21)
[2020-08-12] MEDS: ENOXAPARIN NA (PORCINE) 40 MG/0.4 ML DISP.SYRIN SQ SCH ×2 (10:29→10:34)
[2020-08-12] MEDS: methylPREDNISolone NA SUCC 40 MG/1 ML VIAL IVPUSH SCH (10:29)
[2020-08-12] MEDS ORDERED: PT OWN MED DRAWER 7, Y5N ONE ×3 (10:39→13:54)
[2020-08-12 15:12] VITALS: BP 130/72; PULSE 90; TEMP 97.7
[2020-08-12] MEDS ORDERED: ALBUTEROL SO4 2.5/IPRATROPIUM 0.5 INH SOL 3 ML VIAL.NEB. NEB SCH (16:00)
== END 2020-08-12 16:07 | disposition home or self-care (01) | DRG 141 ==
LOC: JER 16:50 → JERBED 18:57 → JICU 20:27 → J8W 08-11 18:56
PROVIDERS: ADMIT Internal Medicine; ATTEND Internal Medicine
DX: J45.901 Unspecified asthma with (acute) exacerbation (principal); E05.90 Thyrotoxicosis, unspecified without thyrotoxic crisis or storm; E87.2 Acidosis; J96.01 Acute respiratory failure with hypoxia; J96.02 Acute respiratory failure with hypercapnia
CPT/HCPCS: 36415; 36600; 71045-TC-FY; 80053; 82550; 82803; 83605; 83735; 83880; 84100; 84439; 84443; 84484; 85025; 85027; 87040; 87070; 87205; 87804; 93005; 93010; 93308; 94640; 94660; 99285-25; C9803; U0003; U0005

== ENCOUNTER 2021-02-16 16:56 | Emergency (ER) | payer OTHER ==
[2021-02-16 17:06] VITALS: BP 115/75; PULSE 143; TEMP 100.3; BMI 21.7
[2021-02-16] MEDS ORDERED: IBUPROFEN 600 MG TABLET (FP) PO ONE ×2 (18:32→19:05)
== END 2021-02-16 20:20 | disposition home or self-care (01) ==
LOC: JER 16:56
DX: R50.9 Fever, unspecified (principal); R05.1 Acute cough; J02.9 Acute pharyngitis, unspecified; Z11.52 Encounter for screening for COVID-19
CPT/HCPCS: 87880; 99283-25; C9803; U0003; U0005

== ENCOUNTER 2021-08-03 12:31 | Observation (INO) | payer OTHER ==
[2021-08-03 12:49] VITALS: BMI 20.9
[2021-08-03] MEDS ORDERED: DEXAMETHASONE SOD PHOSPHATE 10 MG/1 ML VIAL ONE (13:01)
[2021-08-03] MEDS ORDERED: ALBUTEROL SO4 2.5/IPRATROPIUM 0.5 INH SOL 3 ML VIAL.NEB. NEB ONE (13:01)
[2021-08-03] MEDS ORDERED: ONDANSETRON 4 MG/2 ML VIAL IVPUSH ONE (13:29)
[2021-08-03] MEDS ORDERED: FAMOTIDINE 20 MG/50 ML IVPB 20 MG/50 ML MG IVPB ONE (13:29)
[2021-08-03] MEDS ORDERED: SODIUM CHLORIDE 0.9% 500 ML INFUS.BAG IV ONE ×2 (13:29→15:29)
[2021-08-03] MEDS: ALBUTEROL SO4 2.5/IPRATROPIUM 0.5 INH SOL 3 ML VIAL.NEB. NEB SCH ×3 (13:50→17:29)
[2021-08-03 14:24] LABS: BASO % 0.6 % (0-2.0); EOS % 3.5 % (0-4.5); HEMATOCRIT 38.2 % (32.4-45.2); HEMOGLOBIN 12.7 GM/dL (10.7-15.3); LYMPH % 4.1 % (8-40); MCH 29.9 pg (25.7-33.7); MCHC 33.1 g/dl (32.0-36.0); MEAN CELL VOLUME 90.2 fl (80-96); MEAN PLT VOLUME 9.6 fl (7.5-11.1); MONO % 12.5 % (3.8-10.2); NEUT % 79.3 % (42.8-82.8); PLATELET COUNT 290 10^3/uL (134-434); RBC 4.24 M/mm3 (3.60-5.2); RDW 12.3 % (11.6-15.6); WHITE BLOOD COUNT 4.9 K/mm3 (4.0-10.0)
[2021-08-03 14:42] LABS: CHLORIDE 108 mmol/L (98-107); SODIUM 139 mmol/L (136-145)
[2021-08-03 14:45] LABS: ALBUMIN 3.2 g/dl (3.4-5.0); ANION GAP 10 MMOL/L (8-16); CALCIUM 9.3 mg/dL (8.5-10.1); CO2 21 mmol/L (21-32); GLUCOSE,RANDOM 103 mg/dL (74-106); MAGNESIUM 1.7 mg/dL (1.8-2.4)
[2021-08-03 14:46] LABS: BLOOD UREA NITROGEN 8.4 mg/dL (7-18)
[2021-08-03 14:48] LABS: SGOT/AST 21 U/L (15-37); SGPT/ALT 35 U/L (13-61)
[2021-08-03 14:50] LABS: BILIRUBIN,TOTAL 0.6 mg/dL (0.2-1); TOT PROT 7.2 g/dl (6.4-8.2)
[2021-08-03 14:51] LABS: ALK PHOS 153 U/L (45-117)
[2021-08-03] MEDS ORDERED: MAGNESIUM SULF 50% (8.12 MEQ/2 ML-1 GM VIAL) IVPB ONE (14:54)
[2021-08-03 14:59] LABS: CREATININE 0.4 mg/dL (0.55-1.3)
[2021-08-03] MEDS ORDERED: ONDANSETRON 4 MG/2 ML VIAL ONE (15:07)
[2021-08-03] MEDS ORDERED: MAGNESIUM SULFATE IN WATER 2 GM/50 ML IVPB IVPB ONE (15:08)
[2021-08-03 16:25] LABS: INR 1.27 (0.83-1.09); PROTHROMBIN TIME (PATIENT) 14.6 SEC (9.7-13.0)
[2021-08-03 16:28] LABS: ACTIVATED PTT 34.2 SECONDS (25.2-36.5)
[2021-08-03] MEDS ORDERED: AZITHROMYCIN IVPB 500 MG in DEXTROSE 5%-WATER - 250 ML IVPB ONE (18:17)
[2021-08-03] MEDS ORDERED: CEFTRIAXONE 1,000 MG in DEXTROSE 5%-WATER - 50 ML IVPB ONE (18:17)
[2021-08-03] MEDS ORDERED: CEFTRIAXONE 1 GM/50 ML BAG ONE (19:39)
[2021-08-03] MEDS ORDERED: AZITHROMYCIN IVPB 500 MG/250 ML BAG IVPB ONE (21:05)
[2021-08-04] MEDS ORDERED: ALBUTEROL SO4 2.5/IPRATROPIUM 0.5 INH SOL 3 ML VIAL.NEB. NEB PRN (03:10)
[2021-08-04] MEDS ORDERED: ALBUTEROL SO4 HFA INHALER IH PRN (03:11)
[2021-08-04] MEDS: METHIMAZOLE 10 MG TABLET PO SCH ×3 (03:14→15:22)
[2021-08-04] MEDS ORDERED: cefTRIAXone SODIUM 1 GM VIAL ONE (09:06)
[2021-08-04] MEDS ORDERED: DEXTROSE 5%-WATER - 50 ML IVPB ONE (09:07)
[2021-08-04] MEDS: methylPREDNISolone NA SUCC 40 MG/1 ML VIAL IVPUSH SCH ×2 (09:47→17:57)
[2021-08-04] MEDS: HEPARIN NA (PORCINE) 5,000 UNITS/ML 1ML VIAL SQ SCH ×2 (09:47→21:15)
[2021-08-04] MEDS: CEFTRIAXONE 1 GM in DEXTROSE 5%-WATER - 50 ML IVPB SCH (09:47)
[2021-08-04] MEDS: METOPROLOL TARTRATE 25 MG TABLET (FP) PO SCH ×2 (09:47→21:15)
[2021-08-04] MEDS: AZITHROMYCIN IVPB 500 MG/250 ML BAG IVPB SCH (09:48)
[2021-08-04 13:07] LABS: SARS-CoV-2 NAA Detected (Not Detected)
[2021-08-04 15:26] LABS: BASO % 0.3 % (0-2.0); HEMATOCRIT 37.8 % (32.4-45.2); HEMOGLOBIN 12.9 GM/dL (10.7-15.3); MCH 30.7 pg (25.7-33.7); MCHC 34.3 g/dl (32.0-36.0); MEAN CELL VOLUME 89.4 fl (80-96); MEAN PLT VOLUME 9.2 fl (7.5-11.1); MONO % 14.6 % (3.8-10.2); NEUT % 71.1 % (42.8-82.8); PLATELET COUNT 264 10^3/uL (134-434); RBC 4.22 M/mm3 (3.60-5.2); RDW 12.7 % (11.6-15.6); WHITE BLOOD COUNT 2.5 K/mm3 (4.0-10.0)
[2021-08-04 15:47] LABS: CALCIUM 9.7 mg/dL (8.5-10.1)
[2021-08-04 15:48] LABS: ALBUMIN 3.2 g/dl (3.4-5.0)
[2021-08-04 15:51] LABS: CREATININE 0.5 mg/dL (0.55-1.3)
[2021-08-04 15:52] LABS: BILIRUBIN,TOTAL 0.5 mg/dL (0.2-1)
[2021-08-04 15:53] LABS: TOT PROT 7.5 g/dl (6.4-8.2)
[2021-08-05 01:22] LABS: BASO % 0.3 % (0-2.0); HEMATOCRIT 38.8 % (32.4-45.2); LYMPH % 20.1 % (8-40); MCHC 33.5 g/dl (32.0-36.0); MEAN CELL VOLUME 89.7 fl (80-96); MEAN PLT VOLUME 9.4 fl (7.5-11.1); NEUT % 61.6 % (42.8-82.8); PLATELET COUNT 295 10^3/uL (134-434); RBC 4.33 M/mm3 (3.60-5.2); RDW 12.5 % (11.6-15.6); WHITE BLOOD COUNT 2.5 K/mm3 (4.0-10.0)
[2021-08-05] MEDS: methylPREDNISolone NA SUCC 40 MG/1 ML VIAL IVPUSH SCH ×3 (01:39→17:15)
[2021-08-05] MEDS ORDERED: DEXTROSE 5%-WATER - 50 ML IVPB ONE (10:14)
[2021-08-05] MEDS ORDERED: cefTRIAXone SODIUM 1 GM VIAL ONE (10:14)
[2021-08-05] MEDS: HEPARIN NA (PORCINE) 5,000 UNITS/ML 1ML VIAL SQ SCH ×2 (10:20→21:48)
[2021-08-05] MEDS: CEFTRIAXONE 1 GM in DEXTROSE 5%-WATER - 50 ML IVPB SCH (10:21)
[2021-08-05] MEDS: METOPROLOL TARTRATE 25 MG TABLET (FP) PO SCH ×2 (10:21→21:49)
[2021-08-05] MEDS: AZITHROMYCIN IVPB 500 MG/250 ML BAG IVPB SCH (10:21)
[2021-08-05] MEDS: METHIMAZOLE 10 MG TABLET PO SCH ×2 (17:34→21:49)
[2021-08-05 18:28] LABS: BASO % 0.2 % (0-2.0); EOS % 0.1 % (0-4.5); HEMATOCRIT 43.2 % (32.4-45.2); HEMOGLOBIN 14.3 GM/dL (10.7-15.3); LYMPH % 20.4 % (8-40); MCH 29.7 pg (25.7-33.7); MCHC 33.2 g/dl (32.0-36.0); MEAN CELL VOLUME 89.5 fl (80-96); MEAN PLT VOLUME 9.3 fl (7.5-11.1); MONO % 7.2 % (3.8-10.2); NEUT % 72.1 % (42.8-82.8); PLATELET COUNT 312 10^3/uL (134-434); RBC 4.83 M/mm3 (3.60-5.2); RDW 12.6 % (11.6-15.6); WHITE BLOOD COUNT 3.2 K/mm3 (4.0-10.0)
[2021-08-06] MEDS: methylPREDNISolone NA SUCC 40 MG/1 ML VIAL IVPUSH SCH ×4 (02:35→18:55)
[2021-08-06] MEDS: METHIMAZOLE 10 MG TABLET PO SCH ×2 (05:56→14:59)
[2021-08-06] MEDS ORDERED: cefTRIAXone SODIUM 1 GM VIAL ONE (10:24)
[2021-08-06] MEDS ORDERED: DEXTROSE 5%-WATER - 50 ML IVPB ONE (10:25)
[2021-08-06] MEDS: CEFTRIAXONE 1 GM in DEXTROSE 5%-WATER - 50 ML IVPB SCH ×2 (10:36→11:10)
[2021-08-06] MEDS: HEPARIN NA (PORCINE) 5,000 UNITS/ML 1ML VIAL SQ SCH (10:36)
[2021-08-06] MEDS: METOPROLOL TARTRATE 25 MG TABLET (FP) PO SCH (10:36)
[2021-08-06] MEDS: AZITHROMYCIN IVPB 500 MG/250 ML BAG IVPB SCH (10:39)
[2021-08-06 14:44] VITALS: BP 110/71; PULSE 87; TEMP 97
== END 2021-08-06 18:47 | disposition home or self-care (01) ==
LOC: JER 12:31 → INTOOBSV 18:37 → JERBED 18:37 → UNDOADMOB 18:37 → JERBED 08-04 05:35 → J4S 08-04 05:35
PROVIDERS: ADMIT Internal Medicine; ATTEND Internal Medicine
PROC: 3E0F7GC Introduction of Other Therapeutic Substance into Respiratory Tract, Via Natural or Artificial Opening (ICD-10-PCS; principal; 2021-08-04)
PROC: 3E03329 Introduction of Other Anti-infective into Peripheral Vein, Percutaneous Approach (ICD-10-PCS; 2021-08-04)
PROC: 3E023GC Introduction of Other Therapeutic Substance into Muscle, Percutaneous Approach (ICD-10-PCS; 2021-08-04)
PROC: 3E033GC Introduction of Other Therapeutic Substance into Peripheral Vein, Percutaneous Approach (ICD-10-PCS; 2021-08-04)
PROC: 3E0337Z Introduction of Electrolytic and Water Balance Substance into Peripheral Vein, Percutaneous Approach (ICD-10-PCS; 2021-08-04)
DX: U07.1 COVID-19 (principal); J18.9 Pneumonia, unspecified organism; J02.0 Streptococcal pharyngitis; E05.00 Thyrotoxicosis with diffuse goiter without thyrotoxic crisis or storm; J11.1 Influenza due to unidentified influenza virus with other respiratory manifestations; J45.909 Unspecified asthma, uncomplicated; D64.9 Anemia, unspecified; R00.0 Tachycardia, unspecified; B34.9 Viral infection, unspecified; F12.10 Cannabis abuse, uncomplicated; F41.9 Anxiety disorder, unspecified; M62.81 Muscle weakness (generalized); R10.31 Right lower quadrant pain; J96.01 Acute respiratory failure with hypoxia; R63.4 Abnormal weight loss; R00.2 Palpitations; D72.819 Decreased white blood cell count, unspecified; H00.019 Hordeolum externum unspecified eye, unspecified eyelid; Z86.19 Personal history of other infectious and parasitic diseases
CPT/HCPCS: 36415; 71046-TC-FY; 71275-TC; 80053; 83735; 84439; 84443; 84703; 85025; 85379; 85610; 85730; 86140; 87040; 87086; 87804; 87807; 87899; 93005; 93010; 93308; 94640; 96365; 96367; 96372; 96375; 99285-25; C9803-CS; G0378; J1644; U0003; U0005

== ENCOUNTER 2023-02-06 12:18 | Emergency (ER) | payer OTHER ==
[2023-02-06 12:35] VITALS: TEMP 98.5; BMI 27.4
[2023-02-06] MEDS ORDERED: methylPREDNISolone NA SUCC 125 MG/2 ML VIAL IVPB ONE (12:40)
[2023-02-06] MEDS ORDERED: methylPREDNISolone NA SUCC 125 MG/2 ML VIAL ONE (12:41)
[2023-02-06] MEDS ORDERED: ALBUTEROL SO4 2.5/IPRATROPIUM 0.5 INH SOL 3 ML VIAL.NEB. NEB ONE (12:41)
[2023-02-06] MEDS: ALBUTEROL SO4 2.5/IPRATROPIUM 0.5 INH SOL 3 ML VIAL.NEB. NEB SCH ×3 (12:50→13:16)
[2023-02-06 13:01] LABS: VENOUS BASE EXCESS -6.9 mmol/L (-2-2); VENOUS O2 SATURATION 94.9 % (70-80); VENOUS PCO2 26.2 mmHg (38-52); VENOUS PH 7.407 (7.310-7.410)
[2023-02-06 13:02] LABS: BASO % 0.4 % (0-2.0); EOS % 3.7 % (0-4.5); HEMATOCRIT 35.5 % (32.4-45.2); LYMPH % 6.1 % (8-40); MCH 30.9 pg (25.7-33.7); MCHC 33.7 g/dl (32.0-36.0); MEAN CELL VOLUME 91.8 fl (80-96); MEAN PLT VOLUME 8.7 fl (7.5-11.1); MONO % 7.6 % (3.8-10.2); NEUT % 82.2 % (42.8-82.8); PLATELET COUNT 319 10^3/uL (134-434); RBC 3.87 M/mm3 (3.60-5.2); RDW 12.8 % (11.6-15.6); WHITE BLOOD COUNT 16.5 K/mm3 (4.0-10.0)
[2023-02-06 13:22] LABS: POTASSIUM 3.3 mmol/L (3.5-5.1)
[2023-02-06 13:24] LABS: CALCIUM 8.4 mg/dL (8.5-10.1); INR 0.97 (0.83-1.09); PROTHROMBIN TIME (PATIENT) 11.3 SEC (9.7-13.0)
[2023-02-06 13:25] LABS: BLOOD UREA NITROGEN 4.4 mg/dL (7-18)
[2023-02-06 13:26] LABS: ACTIVATED PTT 26.5 SECONDS (25.2-36.5)
[2023-02-06 13:28] LABS: CREATININE 0.5 mg/dL (0.55-1.3)
[2023-02-06 13:29] LABS: BILIRUBIN,TOTAL 0.4 mg/dL (0.2-1)
[2023-02-06] MEDS ORDERED: LEVALBUTEROL HCL 0.63 MG/3 ML VIAL.NEB. IH PRN (13:30)
[2023-02-06 13:31] VITALS: RESP 26
[2023-02-06 13:35] LABS: MAGNESIUM 1.9 mg/dL (1.8-2.4)
[2023-02-06] MEDS ORDERED: LEVALBUTEROL HCL 0.63 MG/3 ML VIAL.NEB. IH ONE (13:47)
[2023-02-06 14:22] LABS: LACTIC ACID 3.9 mmol/L (0.4-2.0)
[2023-02-06] MEDS ORDERED: SODIUM CHLORIDE 500 ML IV ONE (14:22)
[2023-02-06] MEDS ORDERED: LEVALBUTEROL HCL 0.63 MG/3 ML VIAL.NEB. IH SCH (14:45)
[2023-02-06 15:48] VITALS: BP 130/60; PULSE 132
== END 2023-02-06 16:40 | disposition short-term general hospital (02) ==
LOC: JER 12:18
PROC: 3E033GC Introduction of Other Therapeutic Substance into Peripheral Vein, Percutaneous Approach (ICD-10-PCS; principal; 2023-02-06)
PROC: 3E0F7GC Introduction of Other Therapeutic Substance into Respiratory Tract, Via Natural or Artificial Opening (ICD-10-PCS; 2023-02-06)
PROC: 3E0F7GC Introduction of Other Therapeutic Substance into Respiratory Tract, Via Natural or Artificial Opening (ICD-10-PCS; 2023-02-06)
PROC: 3E0F7GC Introduction of Other Therapeutic Substance into Respiratory Tract, Via Natural or Artificial Opening (ICD-10-PCS; 2023-02-06)
PROC: 3E0337Z Introduction of Electrolytic and Water Balance Substance into Peripheral Vein, Percutaneous Approach (ICD-10-PCS; 2023-02-06)
PROC: 3E0337Z Introduction of Electrolytic and Water Balance Substance into Peripheral Vein, Percutaneous Approach (ICD-10-PCS; 2023-02-06)
PROC: 3E0337Z Introduction of Electrolytic and Water Balance Substance into Peripheral Vein, Percutaneous Approach (ICD-10-PCS; 2023-02-06)
PROC: 3E0337Z Introduction of Electrolytic and Water Balance Substance into Peripheral Vein, Percutaneous Approach (ICD-10-PCS; 2023-02-06)
PROC: 3E0337Z Introduction of Electrolytic and Water Balance Substance into Peripheral Vein, Percutaneous Approach (ICD-10-PCS; 2023-02-06)
DX: O26.893 Other specified pregnancy related conditions, third trimester (principal); R06.02 Shortness of breath; R05.9 Cough, unspecified; R07.89 Other chest pain; R06.82 Tachypnea, not elsewhere classified; R00.0 Tachycardia, unspecified; O99.513 Diseases of the respiratory system complicating pregnancy, third trimester; J45.909 Unspecified asthma, uncomplicated; Z20.822 Contact with and (suspected) exposure to COVID-19; Z3A.34 34 weeks gestation of pregnancy
CPT/HCPCS: 0241U-QW; 36415; 71045-TC-FY; 80053; 82803; 83605; 83735; 84439; 84443; 84484; 85025; 85610; 85730; 86850; 86900; 86901; 93005; 93010; 99285-25

== ENCOUNTER 2023-02-26 22:07 | Inpatient (IN) | payer OTHER ==
[2023-02-26] MEDS: ELECTROLYTE-148 SOLN 1,000 ML IV SCH (23:15)
[2023-02-26 23:32] LABS: BASO % 0.6 % (0-2.0); EOS % 1.4 % (0-4.5); HEMATOCRIT 36.6 % (32.4-45.2); HEMOGLOBIN 12.1 GM/dL (10.7-15.3); LYMPH % 14.5 % (8-40); MCHC 33.2 g/dl (32.0-36.0); MEAN CELL VOLUME 93.5 fl (80-96); MEAN PLT VOLUME 8.7 fl (7.5-11.1); NEUT % 75.5 % (42.8-82.8); PLATELET COUNT 348 10^3/uL (134-434); RBC 3.91 M/mm3 (3.60-5.2); RDW 13.5 % (11.6-15.6)
[2023-02-26 23:41] LABS: POTASSIUM 3.8 mmol/L (3.5-5.1)
[2023-02-26 23:42] LABS: CALCIUM 8.7 mg/dL (8.5-10.1)
[2023-02-26 23:43] LABS: BLOOD UREA NITROGEN 8.9 mg/dL (7-18)
[2023-02-26] MEDS ORDERED: FENTANYL/BUPIVACAINE/NS/PF - PCEA - 50 ML DISP.SYRIN EP ONE (23:45)
[2023-02-26 23:46] LABS: CREATININE 0.5 mg/dL (0.55-1.3)
[2023-02-27] MEDS ORDERED: NALOXONE HCL 0.4 MG/ML VIAL IVPUSH PRN (00:02)
[2023-02-27] MEDS ORDERED: FENTANYL CITRATE/PF 50 MCG/ML VIAL ONE (00:04)
[2023-02-27] MEDS ORDERED: BUPIVACAINE HCL/PF 0.25% (2.5MG/ML) 10 ML VIAL ONE (00:04)
[2023-02-27] MEDS ORDERED: FENTANYL/BUPIVACAINE/NS/PF - PCEA - 50 ML DISP.SYRIN EP SCH (00:15)
[2023-02-27 00:32] VITALS: BMI 29.4
[2023-02-27 00:54] LABS: INR 0.92 (0.83-1.09); PROTHROMBIN TIME (PATIENT) 10.7 SEC (9.7-13.0)
[2023-02-27 00:57] LABS: ACTIVATED PTT 26.1 SECONDS (25.2-36.5)
[2023-02-27] MEDS ORDERED: OXYTOCIN 20 UNITS in 0.9% NS 20 UNIT/1,000 ML INFUS.BAG IV ONE (02:48)
[2023-02-27] MEDS ORDERED: BENZOCAINE 20% 57 GM BOTTLE TP PRN (03:35)
[2023-02-27] MEDS ORDERED: WITCH HAZEL 50% (TUCKS) 40 PAD/JAR PAD TP PRN (03:35)
[2023-02-27] MEDS ORDERED: BENZOCAINE 28 GM HEMORRHOIDAL OINTMENT TP PRN (03:35)
[2023-02-27] MEDS ORDERED: oxyCODONE HCL 5 MG TABLET PO PRN (03:35)
[2023-02-27] MEDS ORDERED: ACETAMINOPHEN 325 MG TABLET (FP) PO PRN (03:35)
[2023-02-27] MEDS ORDERED: BISACODYL 10 MG SUPP.RECT RC PRN (03:35)
[2023-02-27] MEDS ORDERED: METHYLERGONOVINE MALEATE 0.2 MG/1 ML AMP IM PRN (03:35)
[2023-02-27] MEDS ORDERED: METHYLERGONOVINE MALEATE 0.2 MG/1 ML AMP IM ONE (03:39)
[2023-02-27] MEDS ORDERED: OXYTOCIN 20 UNITS in 0.9% NS 20 UNIT/1,000 ML INFUS.BAG IV SCH (03:45)
[2023-02-27] MEDS: METHIMAZOLE 10 MG TABLET PO SCH ×3 (06:31→21:02)
[2023-02-27] MEDS: IBUPROFEN 600 MG TABLET (FP) PO PRN ×3 (09:14→21:06)
[2023-02-27] MEDS: PRENATAL VITAMINS W/ FOLIC ACID TABLET (FP) PO SCH (09:14)
[2023-02-28] MEDS: IBUPROFEN 600 MG TABLET (FP) PO PRN ×5 (04:39→21:59)
[2023-02-28] MEDS: METHIMAZOLE 10 MG TABLET PO SCH ×3 (05:44→21:59)
[2023-02-28] MEDS: PRENATAL VITAMINS W/ FOLIC ACID TABLET (FP) PO SCH (08:59)
[2023-02-28 09:22] LABS: BASO % 0.6 % (0-2.0); EOS % 3.4 % (0-4.5); HEMATOCRIT 31.1 % (32.4-45.2); HEMOGLOBIN 10.1 GM/dL (10.7-15.3); LYMPH % 21.2 % (8-40); MCH 31.2 pg (25.7-33.7); MCHC 32.6 g/dl (32.0-36.0); MEAN CELL VOLUME 95.7 fl (80-96); MEAN PLT VOLUME 8.6 fl (7.5-11.1); MONO % 8.2 % (3.8-10.2); NEUT % 66.6 % (42.8-82.8); PLATELET COUNT 288 10^3/uL (134-434); RBC 3.25 M/mm3 (3.60-5.2); RDW 13.8 % (11.6-15.6)
[2023-02-28] MEDS: ELECTROLYTE-148 SOLN 1,000 ML IV SCH (19:57)
[2023-02-28] MEDS ORDERED: SENNOSIDES/DOCUSATE COMBO (SENNA PLUS) TABLET (UD) PO PRN (22:00)
[2023-03-01] MEDS: METHIMAZOLE 10 MG TABLET PO SCH (06:03)
[2023-03-01 08:27] VITALS: BP 111/75; PULSE 86; RESP 17; TEMP 98.5
[2023-03-01] MEDS: PRENATAL VITAMINS W/ FOLIC ACID TABLET (FP) PO SCH (09:49)
== END 2023-03-01 11:00 | disposition home or self-care (01) | DRG 560 ==
LOC: JDEL 22:07 → JLDR 22:55 → J3W 02-27 05:15
PROVIDERS: ADMIT Obstetrics & Gynecology; ATTEND Obstetrics & Gynecology
PROC: 0HQ9XZZ Repair Perineum Skin, External Approach (ICD-10-PCS; principal; 2023-02-27)
PROC: 10E0XZZ Delivery of Products of Conception, External Approach (ICD-10-PCS; 2023-02-27)
DX: O70.0 First degree perineal laceration during delivery (principal); Z3A.38 38 weeks gestation of pregnancy; Z37.0 Single live birth
CPT/HCPCS: 36415; 80048; 85025; 85610; 85730; 86780; 86850; 86900; 86901

== ENCOUNTER 2023-04-02 15:12 | Emergency (ER) | payer OTHER ==
[2023-04-02 15:21] VITALS: BP 115/82; PULSE 82; RESP 20; TEMP 98.5; BMI 24.2
[2023-04-02 16:21] LABS: EPI CELLS 17 /uL (0-25.1); HYALINE CASTS 0 /uL (0-3.1); URINE APPEARANCE CLEAR; URINE BACTERIA 423 /uL (0-1359); URINE BILIRUBIN NEGATIVE (NEGATIVE); URINE COLOR YELLOW; URINE GLUCOSE (UA) NEGATIVE (NEGATIVE); URINE KETONE TRACE (NEGATIVE); URINE LEUK ESTERASE TRACE (NEGATIVE); URINE NITRITE NEGATIVE (NEGATIVE); URINE PROTEIN TRACE (NEGATIVE); URINE RBC 10 /uL (0-23.9); URINE WBC 39 /uL (0-25.8)
[2023-04-02] MEDS ORDERED: SULFAMETHOXAZOLE/TRIMETHOPRIM 800MG/160MG D.S. TABLET PO ONE (16:51)
[2023-04-02] MEDS ORDERED: SULFAMETHOXAZOLE/TRIMETHOPRIM 800MG/160MG D.S. TABLET ONE (16:55)
== END 2023-04-02 19:27 | disposition home or self-care (01) ==
LOC: JER 15:12
DX: O99.893 Other specified diseases and conditions complicating puerperium (principal); N20.0 Calculus of kidney; R30.0 Dysuria
CPT/HCPCS: 76775-TC; 81003; 87086; 99284-25

== ENCOUNTER 2024-07-19 15:34 | Emergency (ER) | payer OTHER ==
[2024-07-19 15:51] VITALS: BP 113/77; PULSE 95; RESP 20; TEMP 98.2; BMI 25.3
[2024-07-19] MEDS ORDERED: LORATADINE 10 MG TABLET ONE (16:18)
[2024-07-19] MEDS: LORATADINE 10 MG TABLET PO ONE (16:21)
== END 2024-07-19 16:37 | disposition home or self-care (01) ==
LOC: JERFT 15:34
DX: R21 Rash and other nonspecific skin eruption (principal); L29.9 Pruritus, unspecified
CPT/HCPCS: 99283-25